=== PATIENT | female | born 1940 | race American Indian/Alaskan Native ===

== ENCOUNTER 2021-05-20 03:41 | Inpatient (IN) | payer MEDICARE ==
[2021-05-20] MEDS ORDERED: SODIUM CHLORIDE 0.9% 1000 ML 1,000 ML IV ONE ×2 (03:54→04:58)
--- NOTE | 2021-05-20 03:58 | Emergency Department Report ---
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 Patient brought to the emergency room for evaluation of generalized weakness and low blood pressure that started this morning. Patient is alert but confused. She denied any chest pain or shortness of breath. She also denied any abdominal pain, nausea or vomiting. She stated that she was going to the bathroom and she just felt weak all over. No fever or chills. - Related Data Home Medications Medication Instructions Recorded Confirmed Last Taken Empagliflozin [Jardiance] 10 mg PO QDAY 05/20/21 05/20/21 1 Day Ago ~05/19/21 Furosemide [Lasix] 20 mg PO QDAY 05/20/21 05/20/21 1 Day Ago ~05/19/21 Lipase/Protease/Amylase [Yoav Rockwell 1 cap PO BID PRN 05/20/21 05/20/21 1 Day Ago 24,000 Unit Capsule] ~05/19/21 Lipase/Protease/Amylase [Yoav Rockwell 2 cap PO TIDWM 05/20/21 05/20/21 1 Day Ago 24,000 Unit Capsule] ~05/19/21 Peg 400/Hypromellose/Glycerin [Dry 1 drop OU BID 05/20/21 05/20/21 1 Day Ago Eye Relief Eye Drops] ~05/19/21 Allergies Allergy/AdvReac Type Severity Reaction Status Date / Time No Known Allergies Allergy Verified 05/20/21 04:45 ED Review of Systems ROS: Stated complaint: WEAKNESS/LOW BP Other details as noted in HPI Comment: All other systems reviewed and negative Constitutional: denies: chills, fever Respiratory: denies: cough, shortness of breath, SOB with exertion, SOB at rest Cardiovascular: denies: chest pain, palpitations Gastrointestinal: denies: abdominal pain, nausea, vomiting Musculoskeletal: denies: back pain Neurological: weakness. denies: headache, numbness, paresthesias, confusion ED Past Medical Hx - Medications Home Medications: Home Medications Medication Instructions Recorded Confirmed Last Taken Type Empagliflozin [Jardiance] 10 mg PO QDAY 05/20/21 05/20/21 1 Day Ago History ~05/19/21 Furosemide [Lasix] 20 mg PO QDAY 05/20/21 05/20/21 1 Day Ago History ~05/19/21 Lipase/Protease/Amylase [Yoav Rockwell 1 cap PO BID PRN 05/20/21 05/20/21 1 Day Ago History 24,000 Unit Capsule] ~05/19/21 Lipase/Protease/Amylase [Yoav Rockwell 2 cap PO TIDWM 05/20/21 05/20/21 1 Day Ago History 24,000 Unit Capsule] ~05/19/21 Peg 400/Hypromellose/Glycerin [Dry 1 drop OU BID 05/20/21 05/20/21 1 Day Ago History Eye Relief Eye Drops] ~05/19/21 ED Physical Exam - General General appearance: alert, in no apparent distress - Head Head exam: Present: atraumatic, normocephalic, normal inspection - ENT ENT exam: Present: normal exam, normal orophraynx, mucous membranes moist - Neck Neck exam: Present: normal inspection. Absent: tenderness, meningismus - Respiratory Respiratory exam: Present: normal lung sounds bilaterally - Cardiovascular Cardiovascular Exam: Present: regular rate, normal rhythm, normal heart sounds - GI/Abdominal GI/Abdominal exam: Present: soft, normal bowel sounds. Absent: distended, tenderness, guarding, rebound, rigid, mass, bruit, pulsatile mass, hernia - Extremities Exam Extremities exam: Present: normal inspection, full ROM, normal capillary refill. Absent: tenderness - Back Exam Back exam: Present: normal inspection, full ROM. Absent: CVA tenderness (R), CVA tenderness (L) - Neurological Exam Neurological exam: Present: alert, altered - Psychiatric Psychiatric exam: Present: anxious - Skin Skin exam: Present: warm, intact, normal color ED Course Vital Signs 05/20/21 05/20/21 05/20/21 04:41 05:00 05:04 Temperature 97.4 F L Pulse Rate 106 H Respiratory 16 Rate Blood Pressure 121/81 Blood Pressure [Left] O2 Sat by Pulse 98 98 Oximetry 05/20/21 05/20/21 05/20/21 06:53 08:04 08:16 Temperature 97.1 F L Pulse Rate 102 H 106 H 102 H Respiratory 16 12 Rate Blood Pressure Blood Pressure 128/85 107/62 [Left] O2 Sat by Pulse 100 98 Oximetry ED Medical Decision Making - Lab Data Result diagrams: 05/20/21 06:08 05/20/21 09:30 - EKG Data -: EKG Interpreted by Me EKG shows normal: sinus rhythm Rate: tachycardia - Radiology Data Radiology results: report reviewed - Medical Decision Making Patient is 80 years old female with 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 Patient brought to the emergency room for evaluation of generalized weakness and low blood pressure that started this morning. Patient is alert but confused. She denied any chest pain or shortness of breath. She also denied any abdominal pain, nausea or vomiting. She stated that she was going to the bathroom and she just felt weak all over. No fever or chills. Sepsis protocol initiated. Patient started on normal saline 30 mils per KG. Labs reviewed and showed a creatinine of 1.9 and a BUN of 48. Chest x-ray showed left lower lobe infiltrate. Patient received Zosyn. Troponin elevated also. I discussed the patient with Dr. Gusman, he agreed to admit the patient to medical service for further management. Critical Care Time: Yes Critical care time in (mins) excluding proc time.: 35 Critical care attestation.: If time is entered above; I have spent that time in minutes in the direct care of this critically ill patient, excluding procedure time. ED Disposition Clinical Impression: Acute metabolic encephalopathy, Left lower lobe pneumonia, Sepsis, Lactic acidosis Disposition: ADMITTED INPATIENT Is pt being admited?: Yes Condition: Stable
[2021-05-20 04:24] LABS: Basophils % (Auto) 0.1 % (0.0-1.8); Eosinophils % (Auto) 0.1 % (0.0-4.3); Hematocrit 42.6 % (30.3-42.9); Hemoglobin 13.6 gm/dl (10.1-14.3); Lymphocytes # (Auto) 0.5 K/mm3 (1.2-5.4); Mean Corpuscular HGB Conc 32 % (30-34); Mean Corpuscular Volume 100 fl (79-97); Monocytes # (Auto) 0.5 K/mm3 (0.0-0.8); Monocytes % (Auto) 7.2 % (0.0-7.3); Platelet Count 100 K/mm3 (140-440); Red Blood Count 4.28 M/mm3 (3.65-5.03); Red Cell Distribution Width 17.2 % (13.2-15.2)
[2021-05-20 04:35] LABS: INR 1.28 (0.87-1.13)
[2021-05-20 04:36] LABS: Partial Thromboplastin Time 32.7 Sec. (24.2-36.6)
[2021-05-20 04:47] LABS: Albumin 2.9 g/dL (3.9-5); Bilirubin,Direct 0.6 mg/dL (0-0.2); Calcium 11.3 mg/dL (8.4-10.2)
[2021-05-20] MEDS ORDERED: ASPIRIN 81 MG TAB CHEW PO ONE (04:57)
[2021-05-20] MEDS ORDERED: PIPERACILLIN/TAZOBACTAM 3.375 3.375 GM/50 ML BAG IV ONE (04:58)
--- NOTE | 2021-05-20 05:00 | Cat Scan Report ---
CT HEAD WITHOUT CONTRAST INDICATION: Altered Mental Status. TECHNIQUE: All CT scans at this location are performed using CT dose reduction for ALARA by means of automated e xposure control. COMPARISON: None available. FINDINGS: HEMORRHAGE: None. EXTRA-AXIAL SPACES: Normal in size and morphology for the patient's age. VENTRICULAR SYSTEM: Normal in size and morphology for the patient's age. BRAIN PARENCHYMA: No acute findings. Microangiopathic changes are noted in the deep periventricular w kobe matter. MIDLINE SHIFT OR HERNIATION: None. ORBITS: Normal as visualized. SOFT TISSUES OF HEAD: Normal. CALVARIUM: Normal. VISUALIZED PARANASAL SINUSES AND MASTOID AIR CELLS: Clear. ADDITIONAL FINDINGS: None. IMPRESSION: 1. No acute intracranial abnormality. Signer Name: Alfred Ceron MD Signed: 05/20/2021 4:56 AM Workstation Name: [id number]
[2021-05-20 05:17] LABS: Chol/HDL Ratio 8.52 %
--- NOTE | 2021-05-20 05:34 | XRay Report ---
CHEST 1 VIEW INDICATION: Altered Mental Status. COMPARISON: None. FINDINGS: Support devices: Left subclavian port tip projects over the SVC/right atrial junction. Heart: Normal. Lungs/Pleura: There are patchy bilateral airspace opacities. No pleural abnormality. IMPRESSION: 1. Patchy bilateral pulmonary opacities are nonspecific but concerning for bilateral pneumonia. Signer Name: Alfred Ceron MD Signed: 05/20/2021 5:30 AM Workstation Name: [id number]
[2021-05-20] MEDS ORDERED: ALBUTEROL 2.5 MG/3 ML NEBU IH PRN (05:38)
[2021-05-20] MEDS ORDERED: HYDROmorphone 1 MG/1 ML INJ IV PRN (05:38)
[2021-05-20] MEDS ORDERED: ONDANSETRON 4 MG/2 ML INJ IV PRN (05:38)
[2021-05-20] MEDS ORDERED: MORPHINE 2 MG/1 ML INJ IV PRN (05:38)
[2021-05-20] MEDS ORDERED: ACETAMINOPHEN 325 MG TAB PO PRN ×2 (05:38→05:49)
--- NOTE | 2021-05-20 05:46 | History and Physical Report ---
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 Patient is alert but confused. She denied any chest pain or shortness of breath. She also denied a ny abdominal pain, nausea or vomiting. She stated that she was going to the bathroom and she just felt weak all over. No fever or chills. In the emergency room patient is found to have lactic acid of 5.90 , creatinine of 1.9 and a BUN of 48. Chest x-ray showed left lower lobe infiltrate. Tro ponin elevated also 0.122. So going to admit the patient we will put the patient on pneumonia pathway IV antibiotic Past History Past Medical History: other (Gallbladder cancer) Past Surgical History: Other (Gallbladder cancer status post surgery) Social history: other (Unknown) Family history: no significant family history Medications and Allergies Allergies Allergy/AdvReac Type Severity Reaction Status Date / Time No Known Allergies Allergy Verified 05/20/21 04:45 Active Meds: Active Medications Sodium Chloride (Nacl 0.9% 1000 Ml) 1,000 mls @ 999 mls/hr IV BOLUS ONE Stop: 05/20/21 05:58 Review of Systems Constitutional: weakness, malaise, lethargy, other (Low blood pressure) Exam - Constitutional Vitals: Temp Pulse Resp BP Pulse Ox 97.4 F L 106 H 16 121/81 98 05/20/21 04:41 05/20/21 04:41 05/20/21 04:41 05/20/21 04:41 05/20/21 05:04 General appearance: Present: no acute distress, well-nourished - EENT Eyes: Present: PERRL ENT: hearing intact, clear oral mucosa - Neck Neck: Present: supple, normal ROM - Respiratory Respiratory effort: normal Respiratory: bilateral: diminished - Cardiovascular Heart Sounds: Present: S1 & S2. Absent: rub, click - Extremities Extremities: pulses symmetrical, No edema Peripheral Pulses: within normal limits - Abdominal General gastrointestinal: Present: soft, non-tender, non-distended, normal bowel sounds Female genitourinary: Present: normal - Integumentary Integumentary: Present: clear, warm, dry - Musculoskeletal Musculoskeletal: gait normal, strength equal bilaterally - Psychiatric Psychiatric: appropriate mood/affect, intact judgment & insight - Neurologic Neurologic: CNII-XII intact, moves all extremities HEART Score - HEART Score Troponin: Troponin T 0.122 ng/mL (0.00-0.029) H* 05/20/21 04:13 Results - Labs CBC & Chem 7: 05/20/21 04:13 05/20/21 04:13 Labs: Laboratory Last Values WBC 6.5 K/mm3 (4.5-11.0) 05/20/21 04:13 RBC 4.28 M/mm3 (3.65-5.03) 05/20/21 04:13 Hgb 13.6 gm/dl (10.1-14.3) 05/20/21 04:13 Hct 42.6 % (30.3-42.9) 05/20/21 04:13 MCV 100 fl (79-97) H 05/20/21 04:13 MCH 32 pg (28-32) 05/20/21 04:13 MCHC 32 % (30-34) 05/20/21 04:13 RDW 17.2 % (13.2-15.2) H 05/20/21 04:13 Plt Count 100 K/mm3 (140-440) L 05/20/21 04:13 Lymph % (Auto) 7.0 % (13.4-35.0) L 05/20/21 04:13 [place] % (Auto) 7.2 % (0.0-7.3) 05/20/21 04:13 Eos % (Auto) 0.1 % (0.0-4.3) 05/20/21 04:13 Baso % (Auto) 0.1 % (0.0-1.8) 05/20/21 04:13 Lymph # (Auto) 0.5 K/mm3 (1.2-5.4) L 05/20/21 04:13 [place] # (Auto) 0.5 K/mm3 (0.0-0.8) 05/20/21 04:13 Eos # (Auto) 0.0 K/mm3 (0.0-0.4) 05/20/21 04:13 Baso # (Auto) 0.0 K/mm3 (0.0-0.1) 05/20/21 04:13 Seg Neutrophils % 85.6 % (40.0-70.0) H 05/20/21 04:13 Seg Neutrophils # 5.6 K/mm3 (1.8-7.7) 05/20/21 04:13 PT 17.5 Sec. (12.2-14.9) H 05/20/21 04:13 INR 1.28 (0.87-1.13) H 05/20/21 04:13 APTT 32.7 Sec. (24.2-36.6) 05/20/21 04:13 Sodium 140 mmol/L (137-145) 05/20/21 04:13 Potassium 4.3 mmol/L (3.6-5.0) 05/20/21 04:13 Chloride 101.8 mmol/L (98-107) 05/20/21 04:13 Carbon Dioxide 16 mmol/L (22-30) L 05/20/21 04:13 Anion Gap 27 mmol/L 05/20/21 04:13 BUN 48 mg/dL (7-17) H 05/20/21 04:13 Creatinine 1.9 mg/dL (0.6-1.2) H 05/20/21 04:13 Estimated GFR 31 ml/min 05/20/21 04:13 BUN/Creatinine Ratio 25 % 05/20/21 04:13 Glucose 143 mg/dL (65-100) H 05/20/21 04:13 Lactic Acid 5.90 mmol/L (0.7-2.0) H* 05/20/21 04:13 Calcium 11.3 mg/dL (8.4-10.2) H 05/20/21 04:13 Total Bilirubin 1.40 mg/dL (0.1-1.2) H 05/20/21 04:13 Direct Bilirubin 0.6 mg/dL (0-0.2) H 05/20/21 04:13 Indirect Bilirubin 0.8 mg/dL 05/20/21 04:13 AST 49 units/L (5-40) H 05/20/21 04:13 ALT 24 units/L (7-56) 05/20/21 04:13 Alkaline Phosphatase 114 units/L (35-129) 05/20/21 04:13 Ammonia 92.0 umol/L (25-60) H 05/20/21 04:13 Total Creatine Kinase 98 units/L (30-135) 05/20/21 04:13 Troponin T 0.122 ng/mL (0.00-0.029) H* 05/20/21 04:13 Total Protein 6.6 g/dL (6.3-8.2) 05/20/21 04:13 Albumin 2.9 g/dL (3.9-5) L 05/20/21 04:13 Albumin/Globulin Ratio 0.8 % 05/20/21 04:13 Triglycerides 138 mg/dL (2-149) 05/20/21 04:13 Cholesterol 145 mg/dL (50-199) 05/20/21 04:13 LDL Cholesterol Direct 104 mg/dL (50-130) 05/20/21 04:13 HDL Cholesterol 17 mg/dL (40-59) L 05/20/21 04:13 Cholesterol/HDL Ratio 8.52 % 05/20/21 04:13 - Imaging and Cardiology Chest x-ray: report reviewed CT Scan - head: report reviewed Assessment and Plan VTE prophylaxis?: Chemical Plan of care discussed with patient/family: Yes - Patient Problems (1) Acute metabolic encephalopathy Current Visit: Yes Status: Acute Plan to address problem: Admit the patient to the medical telemetry. Metabolic encephalopathy secondary to sepsis pneumonia. Oxygen per nasal cannula 3 L/min. DuoNeb by nebulizer every 4 hours. IV fluid. Rocephin 2 g IV daily and Zithromax 500 mg IV daily. We do the blood culture urine culture. Recheck CBC lactic acid in the morning (2) Left lower lobe pneumonia Current Visit: Yes Status: Acute Plan to address problem: Oxygen per nasal cannula 3 L/min. DuoNeb by nebulizer every 4 hours. IV flui d. Rocephin 2 g IV daily and Zithromax 500 mg IV daily. We do the blood culture urine culture. Recheck CBC lactic acid in the morning (3) Sepsis Current Visit: Yes Status: Acute Plan to address problem: Normal saline at the rate of 125 cc/h. Rocephin 2 g IV daily and Zithromax 500 mg IV daily. We do the blood culture urine culture. Recheck CBC lactic acid in the morning (4) Elevated troponin Current Visit: Yes Status: Acute Plan to address problem: Aspirin 325 mg p.o. daily. Lipitor 40 mg p.o. daily. Serial cardiac enzyme. Echocardiogram. Consult cardiology . (5) Gallbladder cancer Current Visit: Yes Status: Acute Plan to address problem: Patient has gallbladder surgery status post surgery. Patient has recurrence of gallbladder cancer outpatient follow-up with oncology (6) Lactic acidosis Current Visit: Yes Status: Acute Plan to address problem: Oxygen per nasal cannula 3 L/min. DuoNeb by nebulizer every 4 hours. IV fluid. Rocephin 2 g IV daily and Zithromax 500 mg IV daily. We do the blood culture urine culture. Recheck CBC lactic acid in the morning (7) DVT prophylaxis Current Visit: Yes Status: Acute Plan to address problem: Heparin 5000 units subcu every 8 hours for DVT prophylaxis. Pepcid 20 mg p.o. twice daily for GI prophylaxis. Patient is a full code
[2021-05-20] MEDS ORDERED: MORPHINE 4 MG/1 ML INJ IV PRN (05:49)
[2021-05-20] MEDS ORDERED: traMADol 50 MG TAB PO PRN (05:49)
[2021-05-20] MEDS ORDERED: NITROGLYCERIN 0.4 MG TAB SUBL SL PRN (05:49)
[2021-05-20 06:26] LABS: Basophils % (Auto) 0.1 % (0.0-1.8); Eosinophils % (Auto) 0.1 % (0.0-4.3); Hematocrit 37.9 % (30.3-42.9); Hemoglobin 12.9 gm/dl (10.1-14.3); Lymphocytes # (Auto) 0.3 K/mm3 (1.2-5.4); Lymphocytes % (Auto) 4.4 % (13.4-35.0); Mean Corpuscular HGB Conc 34 % (30-34); Mean Corpuscular Volume 98 fl (79-97); Monocytes # (Auto) 0.6 K/mm3 (0.0-0.8); Monocytes % (Auto) 8.3 % (0.0-7.3); Red Blood Count 3.89 M/mm3 (3.65-5.03); Red Cell Distribution Width 16.8 % (13.2-15.2)
[2021-05-20 06:27] LABS: Bilirubin,Urine NEG (Negative); Blood,Urine NEG (Negative); Color,Urine Amber (Yellow); RBC,Urine < 1.0 /HPF (0.0-6.0)
[2021-05-20 06:30] LABS: Platelet Count 97 K/mm3 (140-440)
[2021-05-20 06:33] LABS: BUN/Creatinine Ratio 25; Blood Urea Nitrogen 45 mg/dL (7-17); Calcium 10.7 mg/dL (8.4-10.2); Hemolysis Index 165
[2021-05-20] MEDS: cefTRIAXone/NS 2 GM/100 ML 2 GM/100 ML BAG IV SCH (07:15)
[2021-05-20] MEDS: AZITHROMYCIN/NS 500 MG/250 ML 500 MG/250 ML BAG IV SCH (08:17)
[2021-05-20] MEDS: IPRATROPIUM/ALBUTEROL SULFATE 3 ML AMPUL.NEB IH SCH ×4 (09:00→22:33)
[2021-05-20] MEDS ORDERED: FAMOTIDINE 20 MG/2 ML INJ IV SCH (10:00)
[2021-05-20] MEDS: FAMOTIDINE 20 MG/2 ML INJ IV SCH (10:35)
[2021-05-20] MEDS: HEPARIN 5,000 UNIT/1 ML VIAL SUB-Q SCH ×2 (10:35→21:05)
[2021-05-20 11:12] LABS: Calcium 11.6 mg/dL (8.4-10.2)
--- NOTE | 2021-05-20 11:47 | Consultation ---
History of Present Illness Consult date: 05/20/21 Consult reason: elevated troponin History of present illness: The patient is a 80-year-old woman who was diagnosed with gallbladder and pancreatic cancer over the past year, managed at [facility] with surgery followed by chemotherapy. She states that she is still undergoing treatment at the [facility]. Due to her pancreatic cancer she has had very poor oral intake over the past several weeks and months, culminating in severe weakness over the last several days. She presented to the emergency room yesterday with profound weakness. Laboratory values in the emergency room showed a creatinine of 1.8, dehydration and metabolic acidosis with a sodium of 145 and a CO2 of 19. In this milieu, troponin measurement was also reported at 0.12. Cardiology consultation was requested for the elevated troponin. The patient has no chest pain, no shortness of breath, no cardiac complaints. ECG is in normal sinus rhythm, left axis deviation, poor R wave progression across the precordium but no acute ST or T wave abnormalities. Chest x-ray reveals normal-sized cardiac silhouette, some streaking in the left lower lobe but otherwise clear lung short. She reports no significant prior cardiac history, and tells me that last year during her evaluation for her pancreatic cancer at [facility] she underwent extensive cardiac tests including echocardiogram, stress test and possibly a cardiac catheterization. Past History Past Medical History: other (Gallbladder and pancreatic cancer) Past Surgical History: Other (Gallbladder cancer status post surgery) Social history: other (Unknown) Family history: no significant family history Medications and Allergies Allergies Allergy/AdvReac Type Severity Reaction Status Date / Time No Known Allergies Allergy Verified 05/20/21 04:45 Home Medications Medication Instructions Recorded Confirmed Last Taken Type Empagliflozin [Jardiance] 10 mg PO QDAY 05/20/21 05/20/21 1 Day Ago History ~05/19/21 Furosemide [Lasix] 20 mg PO QDAY 05/20/21 05/20/21 1 Day Ago History ~05/19/21 Lipase/Protease/Amylase [Yoav Rockwell 1 cap PO BID PRN 05/20/21 05/20/21 1 Day Ago History 24,000 Unit Capsule] ~05/19/21 Lipase/Protease/Amylase [Yoav Rockwell 2 cap PO TIDWM 05/20/21 05/20/21 1 Day Ago History 24,000 Unit Capsule] ~05/19/21 Peg 400/Hypromellose/Glycerin [Dry 1 drop OU BID 05/20/21 05/20/21 1 Day Ago History Eye Relief Eye Drops] ~05/19/21 Active Meds: Active Medications Acetaminophen (Acetaminophen 325 Mg Tab) 650 mg PO Q4H PRN PRN Reason: Pain MILD(1-3)/Fever >100.5/HERNANDEZ Albuterol (Albuterol 2.5 Mg/3 Ml Nebu) 2.5 mg IH Q3HRT PRN PRN Reason: Shortness Of Breath Albuterol/Ipratropium (Ipratropium/Albuterol Sulfate 3 Ml Ampul.Neb) 1 ampul IH Q6HRT [facility] Last Admin: 05/20/21 09:17 Dose: 1 ampul Aspirin (Aspirin Ec 325 Mg Tab) 325 mg PO QDAY [facility] Atorvastatin Calcium (Atorvastatin 40 Mg Tab) 40 mg PO QHS [facility] Famotidine (Famotidine 20 Mg/2 Ml Inj) 20 mg IV DAILY [facility] Last Admin: 05/20/21 10:35 Dose: 20 mg Heparin Sodium (Porcine) (Heparin 5,000 Unit/1 Ml Vial) 5,000 unit SUB-Q Q12HR [facility] Last Admin: 05/20/21 10:35 Dose: 5,000 unit Hydromorphone HCl (Hydromorphone 1 Mg/1 Ml Inj) 0.5 mg IV Q3H PRN PRN Reason: Pain , Severe (7-10) Sodium Chloride (Nacl 0.9% 1000 Ml) 1,000 mls @ 125 mls/hr IV DIRECT AJ Ceftriaxone Sodium (Rocephin/Ns 2 Gm/100 Ml) 2 gm in 100 mls @ 200 mls/hr IV Q24H [facility]; Protocol Last Admin: 05/20/21 07:15 Dose: 200 mls/hr Azithromycin (Zithromax/Ns) 500 mg in 250 mls @ 250 mls/hr IV Q24H [facility]; Protocol Last Admin: 05/20/21 08:17 Dose: 250 mls/hr Morphine Sulfate (Morphine 2 Mg/1 Ml Inj) 2 mg IV Q4H PRN PRN Reason: Pain, Moderate (4-6) Morphine Sulfate (Morphine 4 Mg/1 Ml Inj) 2 mg IV Q5MIN PRN PRN Reason: Chest Pain unrelieved by NTG Nitroglycerin (Nitroglycerin 0.4 Mg Tab Subl) 0.4 mg SL Q5M PRN PRN Reason: Chest Pain Ondansetron HCl (Ondansetron 4 Mg/2 Ml Inj) 4 mg IV Q8H PRN PRN Reason: Nausea And Vomiting Sodium Chloride (Sodium Chloride 0.9% 10 Ml Flush Syringe) 10 ml IV BID AJ Last Admin: 05/20/21 10:36 Dose: 10 ml Sodium Chloride (Sodium Chloride 0.9% 10 Ml Flush Syringe) 10 ml IV PRN PRN PRN Reason: LINE FLUSH Tramadol HCl (Tramadol 50 Mg Tab) 50 mg PO Q6H PRN PRN Reason: Pain, Moderate (4-6) Review of Systems Cardiovascular: no chest pain, no orthopnea, no palpitations, no rapid/irregular heart beat, no edema, no syncope, no lightheadedness, no shortness of breath Physical Examination Vital Signs Temp Pulse Resp BP 97.4 F L 106 H 16 121/81 05/20/21 04:41 05/20/21 04:41 05/20/21 04:41 05/20/21 04:41 General appearance: no acute distress, cachectic, other (Chronically ill- appearing) HEENT: Positive: PERRL Neck: Positive: neck supple Cardiac: Positive: Reg Rate and Rhythm Lungs: Positive: clear to auscultation Neuro: Positive: Grossly Intact Abdomen: Positive: Soft Female genitourinary: deferred Skin: Positive: Clear Extremities: Absent: edema Results 05/20/21 06:08 05/20/21 09:30 Cardiac Enzymes 05/20/21 Range/Units 04:13 AST 49 H (5-40) units/L Coagulation 05/20/21 Range/Units 04:13 PT 17.5 H (12.2-14.9) Sec. INR 1.28 H (0.87-1.13) APTT 32.7 (24.2-36.6) Sec. Lipids 05/20/21 Range/Units 04:13 Triglycerides 138 (2-149) mg/dL Cholesterol 145 (50-199) mg/dL HDL Cholesterol 17 L (40-59) mg/dL Cholesterol/HDL Ratio 8.52 % CBC 05/20/21 05/20/21 Range/Units 04:13 06:08 WBC 6.5 6.6 (4.5-11.0) K/mm3 RBC 4.28 3.89 (3.65-5.03) M/mm3 Hgb 13.6 12.9 (10.1-14.3) gm/dl Hct 42.6 37.9 (30.3-42.9) % Plt Count 100 L 97 L (140-440) K/mm3 Lymph # (Auto) 0.5 L 0.3 L (1.2-5.4) K/mm3 [place] # (Auto) 0.5 0.6 (0.0-0.8) K/mm3 Eos # (Auto) 0.0 0.0 (0.0-0.4) K/mm3 Baso # (Auto) 0.0 0.0 (0.0-0.1) K/mm3 Comprehensive Metabolic Panel 05/20/21 05/20/21 05/20/21 Range/Units 04:13 06:08 09:30 Sodium 140 TNR 145 (137-145) mmol/L Potassium 4.3 TNR 4.5 (3.6-5.0) mmol/L Chloride 101.8 TNR 107.9 H (98-107) mmol/L Carbon Dioxide 16 L 17 L 19 L (22-30) mmol/L BUN 48 H 45 H 45 H (7-17) mg/dL Creatinine 1.9 H 1.8 H 1.9 H (0.6-1.2) mg/dL Glucose 143 H 140 H 137 H (65-100) mg/dL Calcium 11.3 H 10.7 H 11.6 H (8.4-10.2) mg/dL Direct Bilirubin 0.6 H (0-0.2) mg/dL Indirect Bilirubin 0.8 mg/dL AST 49 H (5-40) units/L ALT 24 (7-56) units/L Alkaline Phosphatase 114 (35-129) units/L Total Protein 6.6 (6.3-8.2) g/dL Albumin 2.9 L (3.9-5) g/dL EKG interpretations - Telemetry EKG Rhythm: Sinus Rhythm Assessment and Plan - Patient Problems (1) Elevated troponin Current Visit: Yes Status: Acute Plan to address problem: Elevated troponin troponin levels likely in nonspecific incidental finding in this clinical presentation with severe dehydration following extensive surgery and chemotherapy for gallbladder and pancreatic cancer. We will request for records from [facility] including the echocardiogram, stress test and possible cardiac catheterization reports, otherwise no clinical indication for further cardiac work-up at this time.
--- NOTE | 2021-05-20 12:35 | Electrocardiograph Report ---
[facility] Test Date: 2021-05-20 Test Time: 04:51:16 Pat Name: SLADE CARLISLE Department: Room: A479 1 Gender: F Freight Inspector: ALCIRA : 1940 Requested By: NIKITA NGUYEN Order Number: [id number] Reading MD: Kezia Ann Measurements Intervals [place] Rate: 104 P: 118 [place]: 55 QRS: -67 QRSD: 80 T: 131 QT: 314 QTc: 414 Interpretive Statements Sinus tachycardia Left axis deviation Old anterior infarct Low voltage QRS No previous ECG available for comparison Electronically Signed On 05-20-2021 12:35:17 EST by Kezia Ann
--- NOTE | 2021-05-20 20:06 | Progress Note ---
Assessment and Plan Assessment and plan: --non-ST elevation [place] Current Visit: Yes Status: Acute Aspirin 325 mg p.o. daily. Lipitor 40 mg p.o. daily. Serial cardiac enzyme. Cardiology consult, echo for LV function ejection fraction Low-dose beta-blockers, RASHEEDA inhibitors Supportive care --Acute toxic metabolic encephalopathy Current Visit: Yes Status: Acute Metabolic encephalopathy secondary to sepsis pneumonia. Oxygen per nasal cannula 3 L/min. DuoNeb by nebulizer every 4 hours. IV fluid. Rocephin 2 g IV daily and Zithromax 500 mg IV daily. Follow blood culture urine culture. -- Left lower lobe pneumonia/community-acquired Current Visit: Yes Status: Acute Empiric antibiotics, follow cultures Oxygen titrate O2 sats to more than 90% Supportive care --Sepsis secondary to community-acquired pneumonia Current Visit: Yes Status: Acute Tachycardia, lactic acidosis, hypotension, pneumonia on x-ray Treat the underlying cause, continue antibiotics Check procalcitonin, follow cultures --h/o Gallbladder cancer Current Visit: Yes Status: Acute Patient has gallbladder surgery status post surgery. Patient has recurrence of gallbladder cancer outpatient follow-up with oncology --Lactic acidosis Current Visit: Yes Status: Acute Due to sepsis due to pneumonia, IV fluids Rocephin 2 g IV daily and Zithromax 500 mg IV daily. Follow blood cultures -DVT prophylaxis Current Visit: Yes Status: Acute Heparin 5000 units subcu every 8 hours for DVT prophylaxis. Pepcid 20 mg p.o. twice daily for GI prophylaxis. Patient is a full code We will monitor the patient and adjust management as needed Plan of care reviewed with the patient and her nurse Follow cardiology evaluation and recommendations Prolonged care total time 35 minutes History Interval history: I have seen and examined the patient at the bedside this morning Patient's chart and medications reviewed Patient feels slightly better No new complaints vital signs reviewed Hospitalist Physical - Constitutional Vitals: Temp Pulse Resp BP Pulse Ox 94.6 F L 110 H 17 118/68 67 L 05/20/21 15:46 05/20/21 15:46 05/20/21 15:46 05/20/21 15:46 05/20/21 15:46 General appearance: Present: no acute distress, cachectic, other (Chronically ill-appearing) - EENT Eyes: Present: PERRL, EOM intact - Neck Neck: Present: supple, normal ROM - Respiratory Respiratory effort: normal Respiratory: bilateral: diminished, negative: rales, rhonchi, wheezing - Cardiovascular Rhythm: regular Heart Sounds: Present: S1 & S2 - Extremities Extremities: no ischemia, No edema - Abdominal General gastrointestinal: soft, non-tender, non-distended, normal bowel sounds - Integumentary Integumentary: Present: clear, warm - Psychiatric Psychiatric: appropriate mood/affect, cooperative - Neurologic Neurologic: CNII-XII intact, moves all extremities HEART Score - HEART Score Troponin: Troponin T 0.133 ng/mL (0.00-0.029) H* 05/20/21 11:50 Results - Labs CBC & Chem 7: 05/21/21 05:33 05/21/21 05:33 Labs: Laboratory Last Values WBC 6.6 K/mm3 (4.5-11.0) 05/20/21 06:08 RBC 3.89 M/mm3 (3.65-5.03) 05/20/21 06:08 Hgb 12.9 gm/dl (10.1-14.3) 05/20/21 06:08 Hct 37.9 % (30.3-42.9) 05/20/21 06:08 MCV 98 fl (79-97) H 05/20/21 06:08 MCH 33 pg (28-32) H 05/20/21 06:08 MCHC 34 % (30-34) 05/20/21 06:08 RDW 16.8 % (13.2-15.2) H 05/20/21 06:08 Plt Count 97 K/mm3 (140-440) L 05/20/21 06:08 Lymph % (Auto) 4.4 % (13.4-35.0) L 05/20/21 06:08 [place] % (Auto) 8.3 % (0.0-7.3) H 05/20/21 06:08 Eos % (Auto) 0.1 % (0.0-4.3) 05/20/21 06:08 Baso % (Auto) 0.1 % (0.0-1.8) 05/20/21 06:08 Lymph # (Auto) 0.3 K/mm3 (1.2-5.4) L 05/20/21 06:08 [place] # (Auto) 0.6 K/mm3 (0.0-0.8) 05/20/21 06:08 Eos # (Auto) 0.0 K/mm3 (0.0-0.4) 05/20/21 06:08 Baso # (Auto) 0.0 K/mm3 (0.0-0.1) 05/20/21 06:08 Seg Neutrophils % 87.1 % (40.0-70.0) H 05/20/21 06:08 Seg Neutrophils # 5.8 K/mm3 (1.8-7.7) 05/20/21 06:08 PT 17.5 Sec. (12.2-14.9) H 05/20/21 04:13 INR 1.28 (0.87-1.13) H 05/20/21 04:13 APTT 32.7 Sec. (24.2-36.6) 05/20/21 04:13 Sodium 145 mmol/L (137-145) 05/20/21 09:30 Potassium 4.5 mmol/L (3.6-5.0) 05/20/21 09:30 Chloride 107.9 mmol/L (98-107) H 05/20/21 09:30 Carbon Dioxide 19 mmol/L (22-30) L 05/20/21 09:30 Anion Gap 23 mmol/L 05/20/21 09:30 BUN 45 mg/dL (7-17) H 05/20/21 09:30 Creatinine 1.9 mg/dL (0.6-1.2) H 05/20/21 09:30 Estimated GFR 31 ml/min 05/20/21 09:30 BUN/Creatinine Ratio 24 % 05/20/21 09:30 Glucose 137 mg/dL (65-100) H 05/20/21 09:30 POC Glucose 111 mg/dL (70-105) H 05/20/21 11:03 Lactic Acid 4.50 mmol/L (0.7-2.0) H* 05/20/21 10:33 Calcium 11.6 mg/dL (8.4-10.2) H 05/20/21 09:30 Total Bilirubin 1.40 mg/dL (0.1-1.2) H 05/20/21 04:13 Direct Bilirubin 0.6 mg/dL (0-0.2) H 05/20/21 04:13 Indirect Bilirubin 0.8 mg/dL 05/20/21 04:13 AST 49 units/L (5-40) H 05/20/21 04:13 ALT 24 units/L (7-56) 05/20/21 04:13 Alkaline Phosphatase 114 units/L (35-129) 05/20/21 04:13 Ammonia 92.0 umol/L (25-60) H 05/20/21 04:13 Total Creatine Kinase 98 units/L (30-135) 05/20/21 04:13 Troponin T 0.133 ng/mL (0.00-0.029) H* 05/20/21 11:50 Total Protein 6.6 g/dL (6.3-8.2) 05/20/21 04:13 Albumin 2.9 g/dL (3.9-5) L 05/20/21 04:13 Albumin/Globulin Ratio 0.8 % 05/20/21 04:13 Triglycerides 138 mg/dL (2-149) 05/20/21 04:13 Cholesterol 145 mg/dL (50-199) 05/20/21 04:13 LDL Cholesterol Direct 104 mg/dL (50-130) 05/20/21 04:13 HDL Cholesterol 17 mg/dL (40-59) L 05/20/21 04:13 Cholesterol/HDL Ratio 8.52 % 05/20/21 04:13 Urine Color [place] (Yellow) 05/20/21 06:04 Urine Turbidity Slightly-cloudy (Clear) 05/20/21 06:04 Urine pH 5.0 (5.0-7.0) 05/20/21 06:04 Ur Specific [place] 1.027 (1.003-1.030) 05/20/21 06:04 Urine Protein 30 mg/dl mg/dL (Negative) 05/20/21 06:04 Urine Glucose (UA) 150 mg/dL (Negative) 05/20/21 06:04 Urine Ketones Tr mg/dL (Negative) 05/20/21 06:04 Urine Blood Neg (Negative) 05/20/21 06:04 Urine Nitrite Neg (Negative) 05/20/21 06:04 Urine Bilirubin Neg (Negative) 05/20/21 06:04 Urine Urobilinogen 2.0 mg/dL (<2.0) 05/20/21 06:04 Ur Leukocyte Esterase Neg (Negative) 05/20/21 06:04 Urine WBC (Auto) 0.0 /HPF (0.0-6.0) 05/20/21 06:04 Urine RBC (Auto) < 1.0 /HPF (0.0-6.0) 05/20/21 06:04 Microbiology: Microbiology 05/20/21 04:13 Peripheral/Venous Blood Culture - Preliminary Culture in Progress 05/20/21 04:13 Peripheral/Venous Blood Culture - Preliminary Culture in Progress Palomo/IV: Voiding Method Toilet Active Medications - Current Medications Current Medications: Generic Name Dose Route Start Last Admin Trade Name Freq PRN Reason Stop Dose Admin Acetaminophen 650 mg 05/20/21 05:38 Acetaminophen 325 Mg Tab PO Q4H PRN Pain MILD(1-3)/Fever >100.5/HERNANDEZ Albuterol 2.5 mg 05/20/21 05:38 Albuterol 2.5 Mg/3 Ml Nebu IH Q3HRT PRN Shortness Of Breath Albuterol/Ipratropium 1 ampul 05/20/21 08:00 05/20/21 14:24 Ipratropium/Albuterol Sulfate 3 Ml Ampul.Neb IH 1 ampul Q6HRT AJ Administration Aspirin 325 mg 05/21/21 10:00 Aspirin Ec 325 Mg Tab PO QDAY AJ Atorvastatin Calcium 40 mg 05/20/21 22:00 Atorvastatin 40 Mg Tab PO QHS AJ Famotidine 20 mg 05/20/21 10:00 05/20/21 10:35 Famotidine 20 Mg/2 Ml Inj IV 20 mg DAILY AJ Administration Heparin Sodium (Porcine) 5,000 unit 05/20/21 10:00 05/20/21 10:35 Heparin 5,000 Unit/1 Ml Vial SUB-Q 5,000 unit Q12HR AJ Administration Hydromorphone HCl 0.5 mg 05/20/21 05:38 Hydromorphone 1 Mg/1 Ml Inj IV Q3H PRN Pain , Severe (7-10) Sodium Chloride 1,000 mls @ 125 mls/hr 05/20/21 05:45 Nacl 0.9% 1000 Ml IV DIRECT AJ Ceftriaxone Sodium 2 gm in 100 mls @ 200 mls/hr 05/20/21 06:00 05/20/21 07:15 Rocephin/Ns 2 Gm/100 Ml IV 200 mls/hr Q24H AJ Administration Protocol Azithromycin 500 mg in 250 mls @ 250 mls/hr 05/20/21 06:00 05/20/21 08:17 Zithromax/Ns IV 250 mls/hr Q24H AJ Administration Protocol Morphine Sulfate 2 mg 05/20/21 05:38 Morphine 2 Mg/1 Ml Inj IV Q4H PRN Pain, Moderate (4-6) Morphine Sulfate 2 mg 05/20/21 05:49 Morphine 4 Mg/1 Ml Inj IV Q5MIN PRN Chest Pain unrelieved by NTG Nitroglycerin 0.4 mg 05/20/21 05:49 Nitroglycerin 0.4 Mg Tab Subl SL Q5M PRN Chest Pain Ondansetron HCl 4 mg 05/20/21 05:38 Ondansetron 4 Mg/2 Ml Inj IV Q8H PRN Nausea And Vomiting Sodium Chloride 10 ml 05/20/21 10:00 05/20/21 10:36 Sodium Chloride 0.9% 10 Ml Flush Syringe IV 10 ml BID AJ Administration Sodium Chloride 10 ml 05/20/21 05:38 Sodium Chloride 0.9% 10 Ml Flush Syringe IV PRN PRN LINE FLUSH Tramadol HCl 50 mg 05/20/21 05:49 Tramadol 50 Mg Tab PO Q6H PRN Pain, Moderate (4-6)
[2021-05-21] MEDS: IPRATROPIUM/ALBUTEROL SULFATE 3 ML AMPUL.NEB IH SCH ×4 (05:07→21:50)
[2021-05-21] MEDS: cefTRIAXone/NS 2 GM/100 ML 2 GM/100 ML BAG IV SCH (06:01)
[2021-05-21 06:12] LABS: Calcium 11.4 mg/dL (8.4-10.2)
[2021-05-21 06:22] LABS: Hematocrit 41.1 % (30.3-42.9); Hemoglobin 13.1 gm/dl (10.1-14.3); Mean Corpuscular HGB Conc 32 % (30-34); Mean Corpuscular Volume 99 fl (79-97); Red Blood Count 4.16 M/mm3 (3.65-5.03); Red Cell Distribution Width 16.8 % (13.2-15.2)
[2021-05-21 06:23] LABS: Platelet Count 89 K/mm3 (140-440)
[2021-05-21] MEDS: AZITHROMYCIN/NS 500 MG/250 ML 500 MG/250 ML BAG IV SCH (06:41)
[2021-05-21] MEDS: SODIUM CHLORIDE 0.9% 1000 ML 1,000 ML IV SCH ×2 (09:20→16:18)
[2021-05-21] MEDS: HEPARIN 5,000 UNIT/1 ML VIAL SUB-Q SCH ×3 (09:32→22:29)
[2021-05-21] MEDS: FAMOTIDINE 20 MG/2 ML INJ IV SCH (09:33)
[2021-05-21] MEDS: ASPIRIN EC 325 MG TAB PO SCH ×2 (09:33→09:42)
--- NOTE | 2021-05-21 11:15 | Progress Note ---
Assessment and Plan - Patient Problems (1) Elevated troponin Current Visit: Yes Status: Acute Plan to address problem: Elevated troponin troponin levels likely in nonspecific incidental finding in this clinical presentation with severe dehydration following extensive surgery and chemotherapy for gallbladder and pancreatic cancer. We have requested records from [facility] including the echocardiogram, stress test and possible cardiac catheterization reports, otherwise no clinical indication for further cardiac work-up at this time. Subjective Date of service: 05/21/21 Principal diagnosis: Weakness, elevated troponin Interval history: Patient is comfortable, no acute distress. She still has problems with appetite and oral intake. No new cardiac complaints, no cardiac events reported. Objective Vital Signs Temp Pulse Pulse Resp Resp BP BP 05/21/21 08:00 68 19 05/21/21 07:49 97.4 F L 78 16 110/70 05/21/21 03:33 98.0 F 94 H 18 113/74 05/20/21 23:11 97.6 F 16 100/65 05/20/21 22:36 110 H 20 05/20/21 22:35 05/20/21 22:00 05/20/21 20:00 98.0 F 112 H 15 119/80 05/20/21 15:46 94.6 F L 110 H 17 118/68 05/20/21 14:26 61 17 05/20/21 11:54 105/64 Pulse Ox 05/21/21 08:00 91 05/21/21 07:49 91 05/21/21 03:33 94 05/20/21 23:11 92 05/20/21 22:36 05/20/21 22:35 92 05/20/21 22:00 92 05/20/21 20:00 99 05/20/21 15:46 67 L 05/20/21 14:26 05/20/21 11:54 97 - Physical Examination General: No Apparent Distress, Cachectic HEENT: Positive: PERRL Neck: Positive: neck supple Cardiac: Positive: Reg Rate and Rhythm Lungs: Positive: Decreased Breath Sounds Neuro: Positive: Grossly Intact Abdomen: Positive: Soft Skin: Positive: Clear Extremities: Absent: edema - Labs and Meds CBC 05/21/21 Range/Units 05:33 WBC 6.5 (4.5-11.0) K/mm3 RBC 4.16 (3.65-5.03) M/mm3 Hgb 13.1 (10.1-14.3) gm/dl Hct 41.1 (30.3-42.9) % Plt Count 89 L (140-440) K/mm3 Lymph # (Auto) [employer] [place] # (Auto) [employer] Eos # (Auto) [employer] Baso # (Auto) [employer] Comprehensive Metabolic Panel 05/21/21 Range/Units 05:33 Sodium 140 (137-145) mmol/L Potassium 4.0 (3.6-5.0) mmol/L Chloride 108.2 H (98-107) mmol/L Carbon Dioxide 19 L (22-30) mmol/L BUN 46 H (7-17) mg/dL Creatinine 2.2 H (0.6-1.2) mg/dL Glucose 132 H (65-100) mg/dL Calcium 11.4 H (8.4-10.2) mg/dL
--- NOTE | 2021-05-21 18:07 | Progress Note ---
Assessment and Plan Assessment and plan: --non-ST elevation [place] Current Visit: Yes Status: Acute Aspirin 325 mg p.o. daily. Lipitor 40 mg p.o. daily. Serial cardiac enzyme. Cardiology evaluation noted and appreciated Low-dose beta-blockers, RASHEEDA inhibitors Medical records from [place] requested --Acute toxic metabolic encephalopathy Current Visit: Yes Status: Acute Metabolic encephalopathy secondary to sepsis pneumonia. Oxygen per nasal cannula 3 L/min. DuoNeb by nebulizer every 4 hours. IV fluid. Rocephin 2 g IV daily and Zithromax 500 mg IV daily. Follow blood culture urine culture. --Acute kidney injury; due to vasomotor nephropathy Current Visit: Yes Status: Acute Worsening renal function, gentle hydration Monitor renal function, avoid nephrotoxins Renal dosing of medication, check renal ultrasound Consult nephrology - Left lower lobe pneumonia/community-acquired Current Visit: Yes Status: Acute Empiric antibiotics, follow cultures Oxygen titrate O2 sats to more than 90% Supportive care --Sepsis secondary to community-acquired pneumonia Current Visit: Yes Status: Acute Tachycardia, lactic acidosis, hypotension, pneumonia on x-ray Treat the underlying cause, continue antibiotics Check procalcitonin, follow cultures --Lactic acidosis Current Visit: Yes Status: Acute Due to sepsis due to pneumonia, IV fluids Rocephin 2 g IV daily and Zithromax 500 mg IV daily. Follow blood cultures --h/o Gallbladder cancer Current Visit: Yes Status: Acute Patient has gallbladder surgery status post surgery. Patient has recurrence of gallbladder cancer outpatient follow-up with oncology -DVT prophylaxis advance care planning Current Visit: Yes Status: Acute Heparin 5000 units subcu every 8 hours for DVT prophylaxis. Pepcid 20 mg p.o. twice daily for GI prophylaxis. Patient is a full code Advance care planning: I called patient's son Mr. Chin Pineda, discussed patient's condition, I discussed patient's tests and reports I discussed patient's treatment plan, I discussed that we requested medical records from [place] and we are waiting for them I discussed the prognosis, I answered all his questions and concerns. +32 minutes We will monitor the patient and adjust management as needed Plan of care reviewed with the patient and her nurse Cardiology evaluation noted and appreciated Medical records requested from [place] 05/21; patient feels slightly better, cardiology following, requested medical records from [place] Continue current management, cultures negative to date Disposition; follow records from [place], follow cardiology recommendations Discharge when stable and cleared by cardiology Family: I called patient's son Mr. Chin Pineda at [phone] and discussed in detail patient's condition, tests and reports, treatment plan and consultants recommendations, he had numerous questions, answered all of them and encouraged him to call back if he has new questions or concerns he verbalized understanding and was appreciative of my call History Interval history: I have seen and examined patient at the bedside Patient's chart and medications reviewed Patient is alert and awake confused Vital signs Hospitalist Physical - Constitutional Vitals: Temp Pulse Resp BP Pulse Ox 97.4 F L 68 18 106/72 87 05/21/21 16:53 05/21/21 16:53 05/21/21 16:53 05/21/21 16:53 05/21/21 16:53 General appearance: Present: no acute distress, cachectic, other (Looks chronically ill, confused) - EENT Eyes: Present: PERRL, EOM intact - Neck Neck: Present: supple, normal ROM - Respiratory Respiratory effort: normal Respiratory: bilateral: diminished, rhonchi, negative: rales, wheezing - Cardiovascular Rhythm: regular Heart Sounds: Present: S1 & S2 - Extremities Extremities: no ischemia, No edema - Abdominal General gastrointestinal: soft, non-tender, non-distended, normal bowel sounds - Integumentary Integumentary: Present: clear, warm - Psychiatric Psychiatric: other (Confused, minimally communicative) - Neurologic Neurologic: moves all extremities HEART Score - HEART Score Troponin: Troponin T 0.133 ng/mL (0.00-0.029) H* 05/20/21 11:50 Results - Labs CBC & Chem 7: 05/21/21 05:33 05/21/21 05:33 Labs: Laboratory Last Values WBC 6.5 K/mm3 (4.5-11.0) 05/21/21 05:33 RBC 4.16 M/mm3 (3.65-5.03) 05/21/21 05:33 Hgb 13.1 gm/dl (10.1-14.3) 05/21/21 05:33 Hct 41.1 % (30.3-42.9) 05/21/21 05:33 MCV 99 fl (79-97) H 05/21/21 05:33 MCH 32 pg (28-32) 05/21/21 05:33 MCHC 32 % (30-34) 05/21/21 05:33 RDW 16.8 % (13.2-15.2) H 05/21/21 05:33 Plt Count 89 K/mm3 (140-440) L 05/21/21 05:33 Lymph % (Auto) [employer]iconductor Technician 05/21/21 05:33 [place] % (Auto) Semiconductor Technician 05/21/21 05:33 Eos % (Auto) Semiconductor Technician 05/21/21 05:33 Baso % (Auto) Semiconductor Technician 05/21/21 05:33 Lymph # (Auto) Semiconductor Technician 05/21/21 05:33 [place] # (Auto) Semiconductor Technician 05/21/21 05:33 Eos # (Auto) Semiconductor Technician 05/21/21 05:33 Baso # (Auto) Semiconductor Technician 05/21/21 05:33 Seg Neutrophils % Semiconductor Technician 05/21/21 05:33 Seg Neutrophils # Semiconductor Technician 05/21/21 05:33 PT 17.5 Sec. (12.2-14.9) H 05/20/21 04:13 INR 1.28 (0.87-1.13) H 05/20/21 04:13 APTT 32.7 Sec. (24.2-36.6) 05/20/21 04:13 Sodium 140 mmol/L (137-145) 05/21/21 05:33 Potassium 4.0 mmol/L (3.6-5.0) 05/21/21 05:33 Chloride 108.2 mmol/L (98-107) H 05/21/21 05:33 Carbon Dioxide 19 mmol/L (22-30) L 05/21/21 05:33 Anion Gap 17 mmol/L 05/21/21 05:33 BUN 46 mg/dL (7-17) H 05/21/21 05:33 Creatinine 2.2 mg/dL (0.6-1.2) H 05/21/21 05:33 Estimated GFR 26 ml/min 05/21/21 05:33 BUN/Creatinine Ratio 21 % 05/21/21 05:33 Glucose 132 mg/dL (65-100) H 05/21/21 05:33 POC Glucose 111 mg/dL (70-105) H 05/20/21 11:03 Lactic Acid 3.90 mmol/L (0.7-2.0) H* 05/21/21 05:33 Calcium 11.4 mg/dL (8.4-10.2) H 05/21/21 05:33 Total Bilirubin 1.40 mg/dL (0.1-1.2) H 05/20/21 04:13 Direct Bilirubin 0.6 mg/dL (0-0.2) H 05/20/21 04:13 Indirect Bilirubin 0.8 mg/dL 05/20/21 04:13 AST 49 units/L (5-40) H 05/20/21 04:13 ALT 24 units/L (7-56) 05/20/21 04:13 Alkaline Phosphatase 114 units/L (35-129) 05/20/21 04:13 Ammonia 92.0 umol/L (25-60) H 05/20/21 04:13 Total Creatine Kinase 98 units/L (30-135) 05/20/21 04:13 Troponin T 0.133 ng/mL (0.00-0.029) H* 05/20/21 11:50 Total Protein 6.6 g/dL (6.3-8.2) 05/20/21 04:13 Albumin 2.9 g/dL (3.9-5) L 05/20/21 04:13 Albumin/Globulin Ratio 0.8 % 05/20/21 04:13 Triglycerides 138 mg/dL (2-149) 05/20/21 04:13 Cholesterol 145 mg/dL (50-199) 05/20/21 04:13 LDL Cholesterol Direct 104 mg/dL (50-130) 05/20/21 04:13 HDL Cholesterol 17 mg/dL (40-59) L 05/20/21 04:13 Cholesterol/HDL Ratio 8.52 % 05/20/21 04:13 Urine Color [place] (Yellow) 05/20/21 06:04 Urine Turbidity Slightly-cloudy (Clear) 05/20/21 06:04 Urine pH 5.0 (5.0-7.0) 05/20/21 06:04 Ur Specific [place] 1.027 (1.003-1.030) 05/20/21 06:04 Urine Protein 30 mg/dl mg/dL (Negative) 05/20/21 06:04 Urine Glucose (UA) 150 mg/dL (Negative) 05/20/21 06:04 Urine Ketones Tr mg/dL (Negative) 05/20/21 06:04 Urine Blood Neg (Negative) 05/20/21 06:04 Urine Nitrite Neg (Negative) 05/20/21 06:04 Urine Bilirubin Neg (Negative) 05/20/21 06:04 Urine Urobilinogen 2.0 mg/dL (<2.0) 05/20/21 06:04 Ur Leukocyte Esterase Neg (Negative) 05/20/21 06:04 Urine WBC (Auto) 0.0 /HPF (0.0-6.0) 05/20/21 06:04 Urine RBC (Auto) < 1.0 /HPF (0.0-6.0) 05/20/21 06:04 Microbiology: Microbiology 05/20/21 04:13 Peripheral/Venous Blood Culture - Preliminary NO GROWTH AFTER 24 HOURS 05/20/21 04:13 Peripheral/Venous Blood Culture - Preliminary NO GROWTH AFTER 24 HOURS Palomo/IV: Voiding Method External Female Catheter Active Medications - Current Medications Current Medications: Generic Name Dose Route Start Last Admin Trade Name Freq PRN Reason Stop Dose Admin Acetaminophen 650 mg 05/20/21 05:38 Acetaminophen 325 Mg Tab PO Q4H PRN Pain MILD(1-3)/Fever >100.5/HERNANDEZ Albuterol 2.5 mg 05/20/21 05:38 Albuterol 2.5 Mg/3 Ml Nebu IH Q3HRT PRN Shortness Of Breath Albuterol/Ipratropium 1 ampul 05/20/21 08:00 05/21/21 14:07 Ipratropium/Albuterol Sulfate 3 Ml Ampul.Neb IH 1 ampul Q6HRT AJ Administration Aspirin 325 mg 05/21/21 10:00 05/21/21 09:42 Aspirin Ec 325 Mg Tab PO Not Given QDAY AJ Atorvastatin Calcium 40 mg 05/20/21 22:00 05/20/21 21:04 Atorvastatin 40 Mg Tab PO 40 mg QHS AJ Administration Famotidine 20 mg 05/20/21 10:00 05/21/21 09:33 Famotidine 20 Mg/2 Ml Inj IV 20 mg DAILY AJ Administration Heparin Sodium (Porcine) 5,000 unit 05/20/21 10:00 05/21/21 09:41 Heparin 5,000 Unit/1 Ml Vial SUB-Q Not Given Q12HR [facility] Hydromorphone HCl 0.5 mg 05/20/21 05:38 Hydromorphone 1 Mg/1 Ml Inj IV Q3H PRN Pain , Severe (7-10) Sodium Chloride 1,000 mls @ 125 mls/hr 05/20/21 05:45 05/21/21 16:18 Nacl 0.9% 1000 Ml IV 125 mls/hr DIRECT AJ Administration Ceftriaxone Sodium 2 gm in 100 mls @ 200 mls/hr 05/20/21 06:00 05/21/21 06:01 Rocephin/Ns 2 Gm/100 Ml IV 05/24/21 06:29 200 mls/hr Q24H AJ Administration Protocol Azithromycin 500 mg in 250 mls @ 250 mls/hr 05/20/21 06:00 05/21/21 06:41 Zithromax/Ns IV 05/24/21 06:59 250 mls/hr Q24H JA Administration Protocol Morphine Sulfate 2 mg 05/20/21 05:38 Morphine 2 Mg/1 Ml Inj IV Q4H PRN Pain, Moderate (4-6) Morphine Sulfate 2 mg 05/20/21 05:49 Morphine 4 Mg/1 Ml Inj IV Q5MIN PRN Chest Pain unrelieved by NTG Nitroglycerin 0.4 mg 05/20/21 05:49 Nitroglycerin 0.4 Mg Tab Subl SL Q5M PRN Chest Pain Ondansetron HCl 4 mg 05/20/21 05:38 Ondansetron 4 Mg/2 Ml Inj IV Q8H PRN Nausea And Vomiting Sodium Chloride 10 ml 05/20/21 10:00 05/21/21 09:21 Sodium Chloride 0.9% 10 Ml Flush Syringe IV 10 ml BID AJ Administration Sodium Chloride 10 ml 05/20/21 05:38 Sodium Chloride 0.9% 10 Ml Flush Syringe IV PRN PRN LINE FLUSH Tramadol HCl 50 mg 05/20/21 05:49 Tramadol 50 Mg Tab PO Q6H PRN Pain, Moderate (4-6) Nutrition/Malnutrition Assess - Dietary Evaluation Nutrition/Malnutrition Findings: Nutrition Notes Start: 05/21/21 12:31 Freq: Status: Active Protocol: Document 05/21/21 12:31 MARSHA (Rec: 05/21/21 12:57 MARSHA [id number]) Nutrition Notes Need for Assessment generated from: x ray equipment tester,MST Initial or Follow up Assessment Current Diagnosis Sepsis Other Pertinent Diagnosis Acute Metabolic Encephalopathy , Lactic Acidosis, Elevated Troponin, ... Current Diet NPO (since 05/21 00:01). Labs/Tests 05/21: Cl 108.2, CO2 19, BUN 46, Crea 2.2, Glu 132, Ca 11.4 . Pertinent Medications 05/21: Nutritionally unremarkable. Height 5 ft 4 in Weight 77 kg [place] Body Weight (kg) 54.54 BMI 29.1 Intake Prior to Admission Poor Weight change and time frame Pt states havig unintentionally loss 2 to 13 lbs recently. Weight Status Overweight Subjective/Other Information RD consult for skin risk and risk of malnutrition assessments. Pt currently on NPO. Yesterday, Pt's PO was Good ( 75-100%), according to ADL notes. Pt is s/p Gallbladder and Pancreatic Cancer, and has extensive surgical and chem- radiation interventions, and recurrencies. Pt shows no signs of concern for risk of malnutrition at the time, accoreding to Physical Assessment History notes. Percent of energy/protein needs met: Pt currently on NPO. Burn Absent Trauma Absent GI Symptoms None Food Allergy No Skin Integrity/Comment Surgical wounds. Current % PO Other Minimum of two criteria No #1 Nutrition Diagnosis No nutrition diagnosis at this time Comments: Will reassess at F/U. Is patient on ventilator? No Is Patient Ambulatory and/or Out of Bed No REE-([facility]-confined to bed) [phone] Calculation Used for Recommendations [facility] Additional Notes Protein: 1-1.2 g/Kg; 77-92 g/ day. Fluids: 1 ml/Kcal, or as per MD. Nutrition Intervention Follow-Up By: 05/23/21 Additional Comments When pertinent, start monitoring food tolerance, %PO intake of meals, and BM.
--- NOTE | 2021-05-21 18:46 | Event Note ---
Date: 05/21/21 I called patient's son Mr. Chin Pineda at [phone] and discussed in detail patient's condition, tests and reports, treatment plan and consultants recommendations, he had numerous questions, answered all of them and encouraged him to call back if he has new questions or concerns he verbalized understanding and was appreciative of my call
[2021-05-21] MEDS: carvediloL 3.125 MG TAB PO SCH (22:29)
[2021-05-22] MEDS: IPRATROPIUM/ALBUTEROL SULFATE 3 ML AMPUL.NEB IH SCH ×4 (04:15→20:31)
[2021-05-22] MEDS: cefTRIAXone/NS 2 GM/100 ML 2 GM/100 ML BAG IV SCH (06:43)
[2021-05-22] MEDS: AZITHROMYCIN/NS 500 MG/250 ML 500 MG/250 ML BAG IV SCH (06:44)
--- NOTE | 2021-05-22 13:00 | Progress Note ---
Assessment and Plan - Patient Problems (1) Elevated troponin Current Visit: Yes Status: Acute Plan to address problem: Elevated troponin troponin levels likely in nonspecific incidental finding in this clinical presentation with severe dehydration following extensive surgery and chemotherapy for gallbladder and pancreatic cancer. Review of her records from [place] showed that in October 2020 an echocardiogram showed normal left ventricular systolic function with ejection fraction 55%. At that time, she underwent a cardiac PET ischemia scan that was normal. Subjective Date of service: 05/22/21 Principal diagnosis: Weakness, elevated troponin Interval history: Patient is comfortable, no cardiac complaints. Review of her records from [place] showed that in October 2020 an echocardiogram showed normal left ventricular systolic function with ejection fraction 55%. At that time, she underwent a cardiac PET ischemia scan that was normal. Objective Vital Signs Temp Pulse Pulse Resp Resp BP Pulse Ox 05/22/21 12:04 97.7 F 67 18 107/90 87 05/22/21 09:03 98 05/22/21 08:39 97.7 F 75 18 118/82 95 05/22/21 03:57 97.4 F L 73 16 121/85 97 05/21/21 23:13 97.4 F L 69 16 121/76 85 05/21/21 21:51 95 05/21/21 21:50 105 H 18 05/21/21 19:20 97.4 F L 109 H 18 122/75 95 05/21/21 16:53 97.4 F L 68 18 106/72 87 05/21/21 14:00 105 H 18 - Physical Examination General: No Apparent Distress, Cachectic HEENT: Positive: PERRL Neck: Positive: neck supple Cardiac: Positive: Reg Rate and Rhythm Lungs: Positive: clear to auscultation Neuro: Positive: Grossly Intact Abdomen: Positive: Soft Skin: Positive: Clear Extremities: Absent: edema
[2021-05-22] MEDS: HEPARIN 5,000 UNIT/1 ML VIAL SUB-Q SCH ×2 (13:32→21:52)
[2021-05-22] MEDS: ASPIRIN EC 325 MG TAB PO SCH (13:32)
[2021-05-22] MEDS: carvediloL 3.125 MG TAB PO SCH ×2 (13:33→21:51)
--- NOTE | 2021-05-22 15:17 | Progress Note ---
Assessment and Plan --Non-ST elevation [place] Current Visit: Yes Status: Acute Aspirin 325 mg p.o. daily. Lipitor 40 mg p.o. daily. Serial cardiac enzyme. Cardiology evaluation noted and appreciated Low-dose beta-blockers, RASHEEDA inhibitors Medical records from [place] requested --Acute toxic metabolic encephalopathy Current Visit: Yes Status: Acute Metabolic encephalopathy secondary to sepsis pneumonia. Oxygen per nasal cannula 3 L/min. DuoNeb by nebulizer every 4 hours. IV fluid. Rocephin 2 g IV daily and Zithromax 500 mg IV daily. Follow blood culture urine culture. --Acute kidney injury; due to vasomotor nephropathy Current Visit: Yes Status: Acute Worsening renal function, gentle hydration Monitor renal function, avoid nephrotoxins Renal dosing of medication, check renal ultrasound Consult nephrology - Left lower lobe pneumonia/community-acquired Current Visit: Yes Status: Acute Empiric antibiotics, follow cultures Oxygen titrate O2 sats to more than 90% Supportive care --Sepsis secondary to community-acquired pneumonia Current Visit: Yes Status: Acute Tachycardia, lactic acidosis, hypotension, pneumonia on x-ray Treat the underlying cause, continue antibiotics Check procalcitonin, follow cultures --Lactic acidosis Current Visit: Yes Status: Acute Due to sepsis due to pneumonia, IV fluids Rocephin 2 g IV daily and Zithromax 500 mg IV daily. Follow blood cultures --h/o pancreatic head cancer Current Visit: Yes Status: Acute Patient has outpatient follow-up at [facility] s/p chemo and radiation therapy -DVT prophylaxis advance care planning Current Visit: Yes Status: Acute Heparin 5000 units subcu every 8 hours for DVT prophylaxis. Pepcid 20 mg p.o. twice daily for GI prophylaxis. Patient is a full code Advance care planning: Discussed plan of care with patient family at the bedside Daily clinical course: 05/21; patient feels slightly better, cardiology following, requested medical records from [place] Continue current management, cultures negative to date 05/22 Sister requested placement. CM consulted for placement. Review of her records from [place] showed that in October 2020 an echocardiogram showed normal left ventricular systolic function with ejection fraction 55%. At that time, she underwent a cardiac PET ischemia scan that was normal. Elevated troponin troponin levels likely in nonspecific incidental finding in this clinical presentation with severe dehydration following extensive surgery and chemotherapy for gallbladder and pancreatic cancer. follow clinically. Disposition; Discharge when stable and cleared by cardiology. Subjective Date of service: 05/22/21 Principal diagnosis: Weakness, elevated troponin Interval history: Patient seen and examined. Medical records and medication list reviewed. No acute event overnight noted by the RN. Patient denies any chest pain or difficulty breathing. Patient is tolerating diet. Discussed plan of care at bedside with patient's sister and requesting for placement. Objective - Exam Narrative Exam: GENERAL: Elderly -[place]oven[place] female lying on bed appeared to be in no discomfort. HEENT: Normocephalic. Atraumatic. No conjunctival congestion or icterus. Patient has moist mucous membranes. NECK: Supple. Trachea midline. CHEST/LUNGS: Clear to auscultated bilaterally, breathing nonlabored. No wheezes crackles or rhonchi. HEART/CARDIOVASCULAR: Regular in rate and rhythm. S1 and S2 positive. ABDOMEN: Abdomen is soft, nontender. Patient has normal bowel sounds. SKIN: There is no rash. Warm and dry. NEURO: No focal motor deficit. Follows command. MUSCULOSKELETAL: No joint effusion or tenderness. EXTRIMITY: No edema, no cyanosis or clubbing. PSYCH: Cooperative. - Constitutional Vitals: Vital Signs - 12hr 05/22/21 05/22/21 05/22/21 03:57 08:39 09:03 Temperature 97.4 F L 97.7 F Pulse Rate 73 75 Pulse Rate [ Anterior Bilateral Throughout] Respiratory 16 18 Rate Respiratory Rate [Anterior Bilateral Throughout] Blood Pressure 121/85 118/82 O2 Sat by Pulse 97 95 98 Oximetry 05/22/21 05/22/21 05/22/21 12:04 13:33 14:00 Temperature 97.7 F Pulse Rate 67 67 Pulse Rate [ 70 Anterior Bilateral Throughout] Respiratory 18 Rate Respiratory 19 Rate [Anterior Bilateral Throughout] Blood Pressure 107/90 107/90 O2 Sat by Pulse 87 Oximetry - Labs CBC & Chem 7: 05/26/21 05:38 05/27/21 06:42 HEART Score - HEART Score Troponin: Troponin T 0.133 ng/mL (0.00-0.029) H* 05/20/21 11:50
[2021-05-22] MEDS: FAMOTIDINE 20 MG/2 ML INJ IV SCH (18:51)
[2021-05-23] MEDS: IPRATROPIUM/ALBUTEROL SULFATE 3 ML AMPUL.NEB IH SCH ×4 (02:56→19:44)
[2021-05-23] MEDS: cefTRIAXone/NS 2 GM/100 ML 2 GM/100 ML BAG IV SCH (05:39)
[2021-05-23] MEDS: AZITHROMYCIN/NS 500 MG/250 ML 500 MG/250 ML BAG IV SCH (06:35)
[2021-05-23] MEDS: ASPIRIN EC 325 MG TAB PO SCH (09:42)
[2021-05-23] MEDS: HEPARIN 5,000 UNIT/1 ML VIAL SUB-Q SCH ×2 (09:42→22:05)
[2021-05-23] MEDS: FAMOTIDINE 20 MG/2 ML INJ IV SCH (09:42)
[2021-05-23] MEDS ORDERED: SODIUM CHLORIDE 0.9% 500 ML 500 ML IV ONE (12:37)
--- NOTE | 2021-05-23 12:41 | Progress Note ---
Assessment and Plan - Patient Problems (1) Elevated troponin Current Visit: Yes Status: Acute Plan to address problem: Elevated troponin troponin levels likely in nonspecific incidental finding in this clinical presentation with severe dehydration following extensive surgery and chemotherapy for gallbladder and pancreatic cancer. Review of her records from [place] showed that in October 2020 an echocardiogram showed normal left ventricular systolic function with ejection fraction 55%. At that time, she underwent a cardiac PET ischemia scan that was normal. (2) Atrial fibrillation/flutter Current Visit: Yes Status: Acute Plan to address problem: The patient's telemetry strips suggests intermittent atrial flutter fibrillation, I will order a twelve-lead EKG today for further assessment. Subjective Date of service: 05/23/21 Principal diagnosis: Weakness, elevated troponin Interval history: Patient is comfortable, no cardiac complaints. No new cardiac events reported. On pan devulcanizer helper, she has atrial flutter with ventricular rate in the 70s. Objective Vital Signs Temp Pulse Pulse Resp Resp BP BP 05/23/21 08:39 76 18 05/23/21 07:55 97.3 F L 51 L 92 H 98/62 05/23/21 07:54 97.3 F L 18 98/62 05/23/21 04:25 05/23/21 02:51 05/22/21 23:04 98.4 F 64 16 108/67 05/22/21 22:25 05/22/21 20:32 77 19 05/22/21 20:15 64 05/22/21 19:44 98.5 F 64 16 104/74 05/22/21 16:50 97.2 F L 70 18 110/72 05/22/21 14:00 70 19 05/22/21 13:33 67 107/90 Pulse Ox 05/23/21 08:39 05/23/21 07:55 05/23/21 07:54 05/23/21 04:25 98 05/23/21 02:51 98 05/22/21 23:04 79 L 05/22/21 22:25 95 05/22/21 20:32 05/22/21 20:15 05/22/21 19:44 66 L 05/22/21 16:50 100 05/22/21 14:00 05/22/21 13:33 - Physical Examination General: No Apparent Distress, Cachectic HEENT: Positive: PERRL Neck: Positive: neck supple Cardiac: Positive: irregularly irregular Lungs: Positive: clear to auscultation Neuro: Positive: Grossly Intact Abdomen: Positive: Soft Skin: Positive: Clear Extremities: Absent: edema
--- NOTE | 2021-05-23 13:07 | Cat Scan Report ---
CT HEAD WITHOUT CONTRAST INDICATION : CODE STROKE CALL [phone] syncope. TECHNIQUE: Axial imaging performed from the skull apex through the skull base without the use of con trast. Sagittal and coronal reformatted images. All CT scans at this location are performed using C T dose reduction for ALARA by means of automated exposure control. 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 No acute parenchymal abnormality, hemorrhage, mass or mass effect. No extra-axial flu id collection. Ventricles: Ventricles are normal in size and appear symmetric. Bones: No acute osseous abnormality. Sinuses: Sinuses and mastoid air cells are clear. Soft tissues: Soft tissues including the orbits appear normal. IMPRESSION: No acute abnormality. No change since 05/20/2021. COMMUNICATION: Time of Communication (LOADER HELPER/CDT): 1203 hours Licensed Practitioner Receiving Report: DAVID Sky Signer Name: Justin Bermudez Jr, MD Signed: 05/23/2021 1:03 PM Workstation Name: [id number]
[2021-05-23] MEDS: FAMOTIDINE 20 MG TAB PO SCH (13:32)
--- NOTE | 2021-05-23 13:34 | Electrocardiograph Report ---
[facility] Test Date: 2021-05-23 Test Time: 13:01:04 Pat Name: SLADE CARLISLE Department: Room: A479 1 Gender: F Natural Resource Specialist: MALIKA : 1940 Requested By: RAJ ABDUL Order Number: [id number] Reading MD: Kezia Ann Measurements Intervals [place] Rate: 69 P: DC: QRS: -44 QRSD: 115 T: 255 QT: 508 QTc: 546 Interpretive Statements Atrial fibrillation with well-controlled ventricular rate Low voltage QRS Compared to ECG 05/20/2021 04:51:16 No significant change Electronically Signed On 05-23-2021 13:34:05 EST by Kezia Ann
[2021-05-23] MEDS: SODIUM CHLORIDE 0.9% 1000 ML 1,000 ML IV SCH ×2 (14:05→22:21)
--- NOTE | 2021-05-23 17:24 | Progress Note ---
Assessment and Plan --Syncopal episode likely from dehydration. BP recorded low during the event, initiated on iv fluid ordered CT head, activated stroke protocol, consulted tele medicine --Non-ST elevation [place] Current Visit: Yes Status: Acute Aspirin 325 mg p.o. daily. Lipitor 40 mg p.o. daily. Serial cardiac enzyme. Cardiology evaluation noted and appreciated Low-dose beta-blockers, RASHEEDA inhibitors Medical records from [place] requested --Acute toxic metabolic encephalopathy Current Visit: Yes Status: Acute Metabolic encephalopathy secondary to sepsis pneumonia. Oxygen per nasal cannula 3 L/min. DuoNeb by nebulizer every 4 hours. IV fluid. Rocephin 2 g IV daily and Zithromax 500 mg IV daily. Follow blood culture urine culture. --Acute kidney injury; due to vasomotor nephropathy Current Visit: Yes Status: Acute Worsening renal function, gentle hydration Monitor renal function, avoid nephrotoxins Renal dosing of medication, check renal ultrasound Consult nephrology - Left lower lobe pneumonia/community-acquired Current Visit: Yes Status: Acute Empiric antibiotics, follow cultures Oxygen titrate O2 sats to more than 90% Supportive care --Sepsis secondary to community-acquired pneumonia Current Visit: Yes Status: Acute Tachycardia, lactic acidosis, hypotension, pneumonia on x-ray Treat the underlying cause, continue antibiotics Check procalcitonin, follow cultures --Lactic acidosis Current Visit: Yes Status: Acute Due to sepsis due to pneumonia, IV fluids Rocephin 2 g IV daily and Zithromax 500 mg IV daily. Follow blood cultures --h/o pancreatic head cancer Current Visit: Yes Status: Acute Patient has outpatient follow-up at [facility] s/p chemo and radiation therapy -DVT prophylaxis advance care planning Current Visit: Yes Status: Acute Heparin 5000 units subcu every 8 hours for DVT prophylaxis. Pepcid 20 mg p.o. twice daily for GI prophylaxis. Patient is a full code Advance care planning: Discussed plan of care with patient family at the bedside Disposition; Discharge when stable and stroke work up negative Daily clinical course: 05/21; patient feels slightly better, cardiology following, requested medical records from [place] Continue current management, cultures negative to date 05/22 Sister requested placement. CM consulted for placement. Review of her records from [place] showed that in October 2020 an echocardiogram showed normal left ventricular systolic function with ejection fraction 55%. At that time, she underwent a cardiac PET ischemia scan that was normal. Elevated troponin troponin levels likely in nonspecific incidental finding in this clinical presentation with severe dehydration following extensive surgery and chemotherapy for gallbladder and pancreatic cancer. follow clinically. 05/23: patient had a syncopal episode while having a BM. code stroke activated. CT head ordered - showed no acute process. Subjective Date of service: 05/23/21 Principal diagnosis: Weakness, elevated troponin Interval history: Patient seen and examined. Medical records and medication list reviewed. patient had an episode of presyncopal episode while having BM initiated stroke protocol, updated family at the bedside Discussed plan of care at bedside with patient's Son Objective - Exam Narrative Exam: GENERAL: Elderly -[place] African female lying on bed appeared to be in no dis comfort. HEENT: Normocephalic. Atraumatic. No conjunctival congestion or icterus. Patient has moist mucous membranes. NECK: Supple. Trachea midline. CHEST/LUNGS: Clear to auscultated bilaterally, breathing nonlabored. No wheezes crackles or rhonchi. HEART/CARDIOVASCULAR: Regular in rate and rhythm. S1 and S2 positive. ABDOMEN: Abdomen is soft, nontender. Patient has normal bowel sounds. SKIN: There is no rash. Warm and dry. NEURO: No focal motor deficit. Follows command. MUSCULOSKELETAL: No joint effusion or tenderness. EXTRIMITY: No edema, no cyanosis or clubbing. PSYCH: Cooperative. - Constitutional Vitals: Vital Signs - 12hr 05/23/21 05/23/21 05/23/21 07:54 07:55 08:39 Temperature 97.3 F L 97.3 F L Pulse Rate 51 L Pulse Rate [ 76 Anterior Bilateral Throughout] Respiratory 18 92 H Rate Respiratory 18 Rate [Anterior Bilateral Throughout] Blood Pressure 98/62 Blood Pressure 98/62 [Left] O2 Sat by Pulse Oximetry 05/23/21 05/23/21 05/23/21 10:00 10:59 14:54 Temperature 98.0 F Pulse Rate 67 Pulse Rate [ 74 Anterior Bilateral Throughout] Respiratory 24 Rate Respiratory 18 Rate [Anterior Bilateral Throughout] Blood Pressure 98/60 Blood Pressure [Left] O2 Sat by Pulse 95 94 Oximetry 05/23/21 16:13 Temperature 98.0 F Pulse Rate 71 Pulse Rate [ Anterior Bilateral Throughout] Respiratory 22 Rate Respiratory Rate [Anterior Bilateral Throughout] Blood Pressure 105/57 Blood Pressure [Left] O2 Sat by Pulse 95 Oximetry - Labs CBC & Chem 7: 03/06/22 05:38 05/27/21 06:42 Labs: Abnormal lab results 05/23/21 Range/Units 12:33 POC Glucose 145 H (70-105) mg/dL HEART Score - HEART Score Troponin: Troponin T 0.133 ng/mL (0.00-0.029) H* 05/20/21 11:50
[2021-05-23] MEDS: carvediloL 3.125 MG TAB PO SCH ×3 (18:54→22:12)
[2021-05-23 19:11] LABS: Hemoglobin 11.9 gm/dl (10.1-14.3); Mean Corpuscular HGB Conc 34 % (30-34); Mean Corpuscular Volume 99 fl (79-97); Red Blood Count 3.55 M/mm3 (3.65-5.03); Red Cell Distribution Width 17.5 % (13.2-15.2)
[2021-05-23 19:14] LABS: Platelet Count 68 K/mm3 (140-440)
[2021-05-23] MEDS ORDERED: ATROPINE 0.1% (1 MG/10 ML) CARDIAC SYRINGE IV ONE (23:02)
[2021-05-24] MEDS ORDERED: ATROPINE 0.1% (1 MG/10 ML) CARDIAC SYRINGE IV ONE (03:08)
[2021-05-24] MEDS: cefTRIAXone/NS 2 GM/100 ML 2 GM/100 ML BAG IV SCH (05:18)
[2021-05-24] MEDS: IPRATROPIUM/ALBUTEROL SULFATE 3 ML AMPUL.NEB IH SCH ×3 (09:50→23:33)
[2021-05-24] MEDS: HEPARIN 5,000 UNIT/1 ML VIAL SUB-Q SCH (09:58)
[2021-05-24] MEDS: FAMOTIDINE 20 MG TAB PO SCH (09:58)
[2021-05-24] MEDS: ASPIRIN EC 325 MG TAB PO SCH (09:58)
[2021-05-24] MEDS: AZITHROMYCIN 250 MG TAB PO SCH (09:59)
[2021-05-24] MEDS: SODIUM CHLORIDE 0.9% 1000 ML 1,000 ML IV SCH (10:04)
--- NOTE | 2021-05-24 13:21 | Progress Note ---
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 Incidental finding of a mild elevated troponin level is likely nonspecific finding. Review of her records from [place] showed that in October 2020 an echocardiogram showed normal left ventricular systolic function with ejection fraction 55%. At that time, she also underwent a cardiac PET ischemia scan that was normal. (2) Atrial fibrillation/flutter Current Visit: Yes Status: Acute Plan to address problem: Patient was in sinus rhythm on presentation, but over the course of her hospitalization noted with asymptomatic atrial fibrillation and flutter. She is currently on subcu heparin, but ultimately may be considered for long-term oral anticoagulation. Subjective Date of service: 05/24/21 Principal diagnosis: Weakness, elevated troponin Interval history: Patient appears lethargic, but is breathing comfortably on room air. teletypesetter monitor shows sinus rhythm with frequent PACs and intermittent PVCs. Objective Vital Signs Temp Pulse Pulse Resp Resp BP BP 05/24/21 11:17 98.3 F 63 19 117/74 05/24/21 09:50 63 16 05/24/21 07:13 98.4 F 87 18 108/79 05/24/21 07:04 108/75 05/24/21 03:45 05/24/21 03:14 98.7 F 58 L 17 93/42 05/23/21 23:25 05/23/21 22:43 05/23/21 22:42 98.2 F 59 L 18 102/48 05/23/21 20:15 59 L 05/23/21 19:44 71 16 05/23/21 19:20 98.2 F 68 18 105/49 05/23/21 16:13 98.0 F 71 22 105/57 05/23/21 14:54 74 18 Pulse Ox 05/24/21 11:17 93 05/24/21 09:50 05/24/21 07:13 89 05/24/21 07:04 05/24/21 03:45 93 05/24/21 03:14 85 05/23/21 23:25 95 05/23/21 22:43 93 05/23/21 22:42 69 L 05/23/21 20:15 05/23/21 19:44 05/23/21 19:20 98 05/23/21 16:13 95 05/23/21 14:54 - Physical Examination General: No Apparent Distress, Cachectic HEENT: Positive: PERRL Neck: Positive: neck supple Cardiac: Positive: Irregularly Regular Lungs: Positive: Decreased Breath Sounds Neuro: Positive: Grossly Intact Abdomen: Positive: Soft Skin: Positive: Clear Extremities: Absent: edema - Labs and Meds CBC 05/23/21 Range/Units 18:52 WBC 5.1 (4.5-11.0) K/mm3 RBC 3.55 L (3.65-5.03) M/mm3 Hgb 11.9 (10.1-14.3) gm/dl Hct 35.0 D (30.3-42.9) % Plt Count 68 L (140-440) K/mm3 Comprehensive Metabolic Panel 05/23/21 Range/Units 18:52 Sodium 144 (137-145) mmol/L Potassium 4.2 (3.6-5.0) mmol/L Chloride 114.1 H (98-107) mmol/L Carbon Dioxide 18 L (22-30) mmol/L BUN 36 H (7-17) mg/dL Creatinine 1.5 H (0.6-1.2) mg/dL Glucose 140 H (65-100) mg/dL Calcium 10.0 (8.4-10.2) mg/dL
[2021-05-24] MEDS: carvediloL 3.125 MG TAB PO SCH ×2 (15:24→22:56)
--- NOTE | 2021-05-24 16:18 | Progress Note ---
Assessment and Plan --Syncopal episode likely from dehydration. BP recorded low during the event, initiated on iv fluid ordered CT head, activated stroke protocol, consulted tele medicine --Non-ST elevation [place] Current Visit: Yes Status: Acute Aspirin 325 mg p.o. daily. Lipitor 40 mg p.o. daily. Serial cardiac enzyme. Cardiology evaluation noted and appreciated Low-dose beta-blockers, RASHEEDA inhibitors Medical records from [place] requested --Acute toxic metabolic encephalopathy Current Visit: Yes Status: Acute Metabolic encephalopathy secondary to sepsis pneumonia. Oxygen per nasal cannula 3 L/min. DuoNeb by nebulizer every 4 hours. IV fluid. Rocephin 2 g IV daily and Zithromax 500 mg IV daily. Follow blood culture urine culture. --Acute kidney injury; due to vasomotor nephropathy Current Visit: Yes Status: Acute Worsening renal function, gentle hydration Monitor renal function, avoid nephrotoxins Renal dosing of medication, check renal ultrasound Consult nephrology - Left lower lobe pneumonia/community-acquired Current Visit: Yes Status: Acute Empiric antibiotics, follow cultures Oxygen titrate O2 sats to more than 90% Supportive care --Sepsis secondary to community-acquired pneumonia Current Visit: Yes Status: Acute Tachycardia, lactic acidosis, hypotension, pneumonia on x-ray Treat the underlying cause, continue antibiotics Check procalcitonin, follow cultures --Lactic acidosis Current Visit: Yes Status: Acute Due to sepsis due to pneumonia, IV fluids Rocephin 2 g IV daily and Zithromax 500 mg IV daily. Follow blood cultures --h/o pancreatic head cancer Current Visit: Yes Status: Acute Patient has outpatient follow-up at [facility] s/p chemo and radiation therapy -DVT prophylaxis advance care planning Current Visit: Yes Status: Acute Heparin 5000 units subcu every 8 hours for DVT prophylaxis. Pepcid 20 mg p.o. twice daily for GI prophylaxis. Patient is a full code Advance care planning: Discussed plan of care with patient family at the bedside Disposition; Discharge when stable and stroke work up negative Daily clinical course: 05/21; patient feels slightly better, cardiology following, requested medical records from [place] Continue current management, cultures negative to date 05/22 Sister requested placement. CM consulted for placement. Review of her records from [place] showed that in October 2020 an echocardiogram showed normal left ventricular systolic function with ejection fraction 55%. At that time, she underwent a cardiac PET ischemia scan that was normal. Elevated troponin troponin levels likely in nonspecific incidental finding in this clinical presentation with severe dehydration following extensive surgery and chemotherapy for gallbladder and pancreatic cancer. follow clinically. 05/23: patient had a syncopal episode while having a BM. code stroke activated. CT head ordered - showed no acute process. 05/24: CT head w/o any acute process, neuro eval pending. pending SNF placement Subjective Date of service: 05/24/21 Principal diagnosis: Weakness, elevated troponin Interval history: Patient seen and examined. Medical records and medication list reviewed. patient doing better, no acute event o/n pending placement Objective - Exam Narrative Exam: GENERAL: Elderly -[place]ian female lying on bed appeared to be in no discomfort. HEENT: Normocephalic. Atraumatic. No conjunctival congestion or icterus. Patient has moist mucous membranes. NECK: Supple. Trachea midline. CHEST/LUNGS: Clear to auscultated bilaterally, breathing nonlabored. No wheezes crackles or rhonchi. HEART/CARDIOVASCULAR: Regular in rate and rhythm. S1 and S2 positive. ABDOMEN: Abdomen is soft, nontender. Patient has normal bowel sounds. SKIN: There is no rash. Warm and dry. NEURO: No focal motor deficit. Follows command. MUSCULOSKELETAL: No joint effusion or tenderness. EXTRIMITY: No edema, no cyanosis or clubbing. PSYCH: Cooperative. - Constitutional Vitals: Vital Signs - 12hr 05/24/21 05/24/21 05/24/21 07:04 07:13 09:50 Temperature 98.4 F Pulse Rate 87 Pulse Rate [ 63 Anterior Bilateral Throughout] Respiratory 18 Rate Respiratory 16 Rate [Anterior Bilateral Throughout] Blood Pressure 108/75 108/79 Blood Pressure [Left] O2 Sat by Pulse 89 Oximetry 05/24/21 05/24/21 11:17 15:29 Temperature 98.3 F Pulse Rate 63 Pulse Rate [ 70 Anterior Bilateral Throughout] Respiratory 19 Rate Respiratory 16 Rate [Anterior Bilateral Throughout] Blood Pressure Blood Pressure 117/74 [Left] O2 Sat by Pulse 93 Oximetry - Labs CBC & Chem 7: 05/26/21 05:38 05/27/21 06:42 Labs: Abnormal lab results 05/23/21 05/23/21 Range/Units 18:52 18:52 RBC 3.55 L (3.65-5.03) M/mm3 MCV 99 H (79-97) fl MCH 33 H (28-32) pg RDW 17.5 H (13.2-15.2) % Plt Count 68 L (140-440) K/mm3 Chloride 114.1 H (98-107) mmol/L Carbon Dioxide 18 L (22-30) mmol/L BUN 36 H (7-17) mg/dL Creatinine 1.5 H (0.6-1.2) mg/dL Glucose 140 H (65-100) mg/dL HEART Score - HEART Score Troponin: Troponin T 0.133 ng/mL (0.00-0.029) H* 05/20/21 11:50
[2021-05-24 18:17] LABS: Hemoglobin 12.4 gm/dl (10.1-14.3); Mean Corpuscular HGB Conc 32 % (30-34); Mean Corpuscular Volume 99 fl (79-97); Red Blood Count 3.93 M/mm3 (3.65-5.03); Red Cell Distribution Width 17.4 % (13.2-15.2)
[2021-05-24 18:32] LABS: Platelet Count 92 K/mm3 (140-440)
[2021-05-24 18:37] LABS: INR 1.28 (0.87-1.13)
[2021-05-24 18:38] LABS: Partial Thromboplastin Time 50.9 Sec. (24.2-36.6)
[2021-05-24] MEDS: APIXABAN 2.5 MG TAB PO SCH (22:58)
[2021-05-25] MEDS: SODIUM CHLORIDE 0.9% 1000 ML 1,000 ML IV SCH ×2 (02:25→11:48)
[2021-05-25] MEDS: AZITHROMYCIN 250 MG TAB PO SCH (10:00)
[2021-05-25] MEDS: APIXABAN 2.5 MG TAB PO SCH ×2 (10:00→21:31)
[2021-05-25] MEDS: carvediloL 3.125 MG TAB PO SCH (10:00)
[2021-05-25] MEDS: FAMOTIDINE 20 MG TAB PO SCH (10:00)
[2021-05-25] MEDS: IPRATROPIUM/ALBUTEROL SULFATE 3 ML AMPUL.NEB IH SCH ×3 (10:03→22:10)
--- NOTE | 2021-05-25 10:52 | Progress Note ---
Assessment and Plan Pneumonia Paroxysmal atrial fibrillation/flutter with slow conduction and nonsignificant pauses at night. Gallbladder/Pancreatic CA s/p surgery/chemotherapy Nonspecific troponin elevation: Not consistent with ACS October 2020 echocardiogram showed normal left ventricular systolic function with ejection fraction 55%. At that time, she also underwent a cardiac PET ischemia scan that was normal. Recommend: Given periods of slow conduction with AF, stop coreg. Can add other anti- hypertensive agent if needed. Continue systemic anticoagulation with low dose eliquis (Cr 1.5 and will soon be 80) Subjective Date of service: 05/25/21 Principal diagnosis: Weakness, elevated troponin Interval history: No acute events Objective Vital Signs Temp Pulse Pulse Resp Resp BP BP 05/25/21 10:03 88 18 05/25/21 08:59 16 05/25/21 08:07 97.6 F 52 L 17 106/57 05/25/21 02:59 97.2 F L 44 L 16 98/62 05/24/21 23:36 88 18 05/24/21 23:00 68 18 05/24/21 22:40 97.6 F 39 L 16 104/55 05/24/21 19:20 98.4 F 64 18 112/58 05/24/21 15:29 70 16 05/24/21 15:04 98.4 F 55 L 18 114/60 05/24/21 11:17 98.3 F 63 19 117/74 05/24/21 11:00 18 Pulse Ox 05/25/21 10:03 05/25/21 08:59 96 05/25/21 08:07 95 05/25/21 02:59 99 05/24/21 23:36 05/24/21 23:00 100 05/24/21 22:40 86 05/24/21 19:20 87 05/24/21 15:29 05/24/21 15:04 92 05/24/21 11:17 93 05/24/21 11:00 95 - Physical Examination General: No Apparent Distress, Cachectic HEENT: Positive: PERRL Neck: Positive: neck supple Cardiac: Positive: irregularly irregular Lungs: Positive: clear to auscultation Neuro: Positive: Grossly Intact Abdomen: Positive: Soft Skin: Positive: Clear Extremities: Absent: edema - Labs and Meds Coagulation 05/24/21 Range/Units 17:33 PT 17.5 H (12.2-14.9) Sec. INR 1.28 H (0.87-1.13) APTT 50.9 H (24.2-36.6) Sec. CBC 05/24/21 Range/Units 17:34 WBC 5.2 (4.5-11.0) K/mm3 RBC 3.93 (3.65-5.03) M/mm3 Hgb 12.4 (10.1-14.3) gm/dl Hct 39.0 (30.3-42.9) % Plt Count 92 L (140-440) K/mm3 Comprehensive Metabolic Panel 05/24/21 Range/Units 17:33 Creatinine 1.5 H (0.6-1.2) mg/dL
--- NOTE | 2021-05-25 23:58 | Progress Note ---
Assessment and Plan --Syncopal episode likely from dehydration. BP recorded low during the event, initiated on iv fluid CT head w/o any acute process, activated stroke protocol, consulted neuro --Non-ST elevation MS Current Visit: Yes Status: Acute Aspirin 325 mg p.o. daily. Lipitor 40 mg p.o. daily. Serial cardiac enzyme. Cardiology evaluation noted and appreciated Low-dose beta-blockers, RASHEEDA inhibitors Medical records from [place] requested --Acute toxic metabolic encephalopathy Current Visit: Yes Status: Acute Metabolic encephalopathy secondary to sepsis pneumonia. Oxygen per nasal cannula 3 L/min. DuoNeb by nebulizer every 4 hours. IV fluid. Rocephin 2 g IV daily and Zithromax 500 mg IV daily. Follow blood culture urine culture. --Acute kidney injury; due to vasomotor nephropathy Current Visit: Yes Status: Acute Worsening renal function, gentle hydration Monitor renal function, avoid nephrotoxins Renal dosing of medication, check renal ultrasound Consult nephrology - Left lower lobe pneumonia/community-acquired Current Visit: Yes Status: Acute Empiric antibiotics, follow cultures Oxygen titrate O2 sats to more than 90% Supportive care --Sepsis secondary to community-acquired pneumonia Current Visit: Yes Status: Acute Tachycardia, lactic acidosis, hypotension, pneumonia on x-ray Treat the underlying cause, continue antibiotics Check procalcitonin, follow cultures --Lactic acidosis Current Visit: Yes Status: Acute Due to sepsis due to pneumonia, IV fluids Rocephin 2 g IV daily and Zithromax 500 mg IV daily. Follow blood cultures --h/o pancreatic head cancer Current Visit: Yes Status: Acute Patient has outpatient follow-up at [facility] s/p chemo and radiation therapy -DVT prophylaxis advance care planning Current Visit: Yes Status: Acute Heparin 5000 units subcu every 8 hours for DVT prophylaxis. Pepcid 20 mg p.o. twice daily for GI prophylaxis. Patient is a full code Advance care planning: Discussed plan of care with patient family at the bedside Disposition; Discharge when stable and stroke work up negative Daily clinical course: 05/21; patient feels slightly better, cardiology following, requested medical records from [place] Continue current management, cultures negative to date 05/22 Sister requested placement. CM consulted for placement. Review of her records from [place] showed that in October 2020 an echocardiogram showed normal left ventricular systolic function with ejection fraction 55%. At that time, she underwent a cardiac PET ischemia scan that was normal. Elevated troponin troponin levels likely in nonspecific incidental finding in this clinical presentation with severe dehydration following extensive surgery and chemotherapy for gallbladder and pancreatic cancer. follow clinically. 05/23: patient had a syncopal episode while having a BM. code stroke activated. CT head ordered - showed no acute process. 05/24: CT head w/o any acute process, neuro eval pending. pending SNF placement 05/25: pending neuro eval. patient clinically stable. BP stable. tolerating diet. pending placement. Subjective Date of service: 05/25/21 Principal diagnosis: Weakness, elevated troponin Interval history: Patient seen and examined. Medical records and medication list reviewed. patient doing better, no acute event o/n pending placement to SNF Objective - Exam Narrative Exam: GENERAL: Elderly -[place] female lying on bed appeared to be in no discomfort. HEENT: Normocephalic. Atraumatic. No conjunctival congestion or icterus. Patient has moist mucous membranes. NECK: Supple. Trachea midline. CHEST/LUNGS: Clear to auscultated bilaterally, breathing nonlabored. No wheezes crackles or rhonchi. HEART/CARDIOVASCULAR: Regular in rate and rhythm. S1 and S2 positive. ABDOMEN: Abdomen is soft, nontender. Patient has normal bowel sounds. SKIN: There is no rash. Warm and dry. NEURO: No focal motor deficit. Follows command. MUSCULOSKELETAL: No joint effusion or tenderness. EXTRIMITY: No edema, no cyanosis or clubbing. PSYCH: Cooperative. - Constitutional Vitals: Vital Signs - 12hr 05/25/21 05/25/21 05/25/21 12:05 16:14 16:35 Temperature 98.1 F 98.0 F Pulse Rate 50 L 47 L Pulse Rate [ 70 Anterior Bilateral Throughout] Respiratory 18 18 Rate Respiratory 18 Rate [Anterior Bilateral Throughout] Blood Pressure 105/53 130/53 O2 Sat by Pulse 97 99 Oximetry 05/25/21 05/25/21 19:50 22:45 Temperature 98.3 F Pulse Rate 63 Pulse Rate [ Anterior Bilateral Throughout] Respiratory 18 18 Rate Respiratory Rate [Anterior Bilateral Throughout] Blood Pressure 114/53 O2 Sat by Pulse 97 96 Oximetry - Labs CBC & Chem 7: 05/26/21 05:38 05/27/21 06:42 HEART Score - HEART Score Troponin: Troponin T 0.133 ng/mL (0.00-0.029) H* 05/20/21 11:50
[2021-05-26] MEDS: SODIUM CHLORIDE 0.9% 1000 ML 1,000 ML IV SCH ×2 (01:02→09:26)
[2021-05-26 06:11] LABS: Hematocrit 34.5 % (30.3-42.9); Hemoglobin 11.2 gm/dl (10.1-14.3); Mean Corpuscular HGB Conc 33 % (30-34); Mean Corpuscular Volume 98 fl (79-97); Red Blood Count 3.53 M/mm3 (3.65-5.03); Red Cell Distribution Width 17.2 % (13.2-15.2)
[2021-05-26 06:22] LABS: Platelet Count 84 K/mm3 (140-440)
[2021-05-26] MEDS: APIXABAN 2.5 MG TAB PO SCH ×2 (09:25→22:19)
[2021-05-26] MEDS: FAMOTIDINE 20 MG TAB PO SCH (09:25)
[2021-05-26] MEDS: IPRATROPIUM/ALBUTEROL SULFATE 3 ML AMPUL.NEB IH SCH ×3 (09:31→22:13)
--- NOTE | 2021-05-26 11:06 | Progress Note ---
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 Gallbladder/Pancreatic CA s/p surgery/chemotherapy Nonspecific troponin elevation: Not consistent with ACS October 2020 echocardiogram showed normal left ventricular systolic function with ejection fraction 55%. At that time, she also underwent a cardiac PET ischemia scan that was normal. Recommend: Given periods of slow conduction and pauses with AF, stopped coreg on 05/25/21. BP stable thus far without coreg. Continue systemic anticoagulation with low dose eliquis (Cr 1.5 and will soon be 80) Subjective Date of service: 05/26/21 Principal diagnosis: Weakness, elevated troponin Interval history: Coreg stopped yesterday. BP remains stable. Objective Vital Signs Temp Pulse Pulse Resp Resp BP Pulse Ox 05/26/21 10:00 18 98 05/26/21 09:31 89 18 05/26/21 08:29 97.9 F 18 104/48 05/26/21 04:47 98.0 F 47 L 18 104/55 98 05/25/21 22:45 18 96 05/25/21 19:50 98.3 F 63 18 114/53 97 05/25/21 16:35 70 18 05/25/21 16:14 98.0 F 47 L 18 130/53 99 05/25/21 12:05 98.1 F 50 L 18 105/53 97 - Physical Examination General: No Apparent Distress, Cachectic HEENT: Positive: PERRL Neck: Positive: neck supple Cardiac: Positive: irregularly irregular Lungs: Positive: clear to auscultation Neuro: Positive: Grossly Intact Abdomen: Positive: Soft Skin: Positive: Clear Extremities: Absent: edema - Labs and Meds CBC 05/26/21 Range/Units 05:38 WBC 4.3 L (4.5-11.0) K/mm3 RBC 3.53 L (3.65-5.03) M/mm3 Hgb 11.2 (10.1-14.3) gm/dl Hct 34.5 (30.3-42.9) % Plt Count 84 L (140-440) K/mm3
--- NOTE | 2021-05-26 22:35 | Progress Note ---
Assessment and Plan --Syncopal episode likely from dehydration. BP recorded low during the event, resolved with iv fluid CT head w/o any acute process, activated stroke protocol, consulted neuro --Non-ST elevation SD Current Visit: Yes Status: Acute Aspirin 325 mg p.o. daily. Lipitor 40 mg p.o. daily. Serial cardiac enzyme. Cardiology evaluation noted and appreciated Low-dose beta-blockers, RASHEEDA inhibitors Medical records from [place] requested --Acute toxic metabolic encephalopathy Current Visit: Yes Status: Acute Metabolic encephalopathy secondary to sepsis pneumonia. Oxygen per nasal cannula 3 L/min. DuoNeb by nebulizer every 4 hours. IV fluid. Rocephin 2 g IV daily and Zithromax 500 mg IV daily. Follow blood culture urine culture. --Acute kidney injury; due to vasomotor nephropathy Current Visit: Yes Status: Acute Worsening renal function, gentle hydration Monitor renal function, avoid nephrotoxins Renal dosing of medication, check renal ultrasound Consult nephrology - Left lower lobe pneumonia/community-acquired Current Visit: Yes Status: Acute Empiric antibiotics, follow cultures Oxygen titrate O2 sats to more than 90% Supportive care --Sepsis secondary to community-acquired pneumonia Current Visit: Yes Status: Acute Tachycardia, lactic acidosis, hypotension, pneumonia on x-ray Treat the underlying cause, continue antibiotics Check procalcitonin, follow cultures --Lactic acidosis Current Visit: Yes Status: Acute Due to sepsis due to pneumonia, IV fluids Rocephin 2 g IV daily and Zithromax 500 mg IV daily. Follow blood cultures --h/o pancreatic head cancer Current Visit: Yes Status: Acute Patient has outpatient follow-up at [facility] s/p chemo and radiation therapy -DVT prophylaxis advance care planning Current Visit: Yes Status: Acute Heparin 5000 units subcu every 8 hours for DVT prophylaxis. Pepcid 20 mg p.o. twice daily for GI prophylaxis. Patient is a full code Advance care planning: Discussed plan of care with patient family at the bedside Disposition; Discharge when stable and stroke work up negative Daily clinical course: 05/21; patient feels slightly better, cardiology following, requested medical records from [place] Continue current management, cultures negative to date 05/22 Sister requested placement. CM consulted for placement. Review of her records from [place] showed that in October 2020 an echocardiogram showed normal left ventricular systolic function with ejection fraction 55%. At that time, she underwent a cardiac PET ischemia scan that was normal. Elevated troponin troponin levels likely in nonspecific incidental finding in this clinical presentation with severe dehydration following extensive surgery and chemotherapy for gallbladder and pancreatic cancer. follow clinically. 05/23: patient had a syncopal episode while having a BM. code stroke activated. CT head ordered - showed no acute process. 05/24: CT head w/o any acute process, neuro eval pending. pending SNF placement 05/25: pending neuro eval. patient clinically stable. BP stable. tolerating diet. pending placement. 05/26: Pending placement. pending neuro eval. cont to follow clinically. Subjective Date of service: 05/26/21 Principal diagnosis: Weakness, elevated troponin Interval history: Patient seen and examined. Medical records and medication list reviewed. patient doing better, no acute event o/n pending placement to SNF Objective - Exam Narrative Exam: GENERAL: Elderly -[place] female lying on bed appeared to be in no discomfort. HEENT: Normocephalic. Atraumatic. No conjunctival congestion or icterus. Patient has moist mucous membranes. NECK: Supple. Trachea midline. CHEST/LUNGS: Clear to auscultated bilaterally, breathing nonlabored. No wheezes crackles or rhonchi. HEART/CARDIOVASCULAR: Regular in rate and rhythm. S1 and S2 positive. ABDOMEN: Abdomen is soft, nontender. Patient has normal bowel sounds. SKIN: There is no rash. Warm and dry. NEURO: No focal motor deficit. Follows command. MUSCULOSKELETAL: No joint effusion or tenderness. EXTRIMITY: No edema, no cyanosis or clubbing. PSYCH: Cooperative. - Constitutional Vitals: Vital Signs - 12hr 05/26/21 05/26/21 05/26/21 11:23 15:46 15:56 Temperature 97.8 F 97.7 F Pulse Rate 88 81 Pulse Rate [ 58 L Anterior Bilateral Throughout] Respiratory 18 18 Rate Respiratory 18 Rate [Anterior Bilateral Throughout] Blood Pressure 109/46 Blood Pressure [Left] O2 Sat by Pulse 98 98 Oximetry 05/26/21 05/26/21 05/26/21 16:01 20:00 20:43 Temperature Pulse Rate 46 L Pulse Rate [ 64 Anterior Bilateral Throughout] Respiratory 18 Rate Respiratory 18 Rate [Anterior Bilateral Throughout] Blood Pressure 117/54 Blood Pressure 99/63 [Left] O2 Sat by Pulse 96 Oximetry 05/26/21 21:02 Temperature 97.9 F Pulse Rate Pulse Rate [ Anterior Bilateral Throughout] Respiratory Rate Respiratory Rate [Anterior Bilateral Throughout] Blood Pressure Blood Pressure [Left] O2 Sat by Pulse Oximetry - Labs CBC & Chem 7: 05/26/21 05:38 05/27/21 06:42 Labs: Abnormal lab results 05/26/21 Range/Units 05:38 WBC 4.3 L (4.5-11.0) K/mm3 RBC 3.53 L (3.65-5.03) M/mm3 MCV 98 H (79-97) fl RDW 17.2 H (13.2-15.2) % Plt Count 84 L (140-440) K/mm3 HEART Score - HEART Score Troponin: Troponin T 0.133 ng/mL (0.00-0.029) H* 05/20/21 11:50
[2021-05-27] MEDS: IPRATROPIUM/ALBUTEROL SULFATE 3 ML AMPUL.NEB IH SCH ×3 (11:06→21:15)
[2021-05-27] MEDS: APIXABAN 2.5 MG TAB PO SCH ×2 (11:13→22:12)
[2021-05-27] MEDS: FAMOTIDINE 20 MG TAB PO SCH (11:13)
--- NOTE | 2021-05-27 13:21 | Progress Note ---
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 Incidental finding of a mild elevated troponin level is likely nonspecific finding. Review of her records from [place] showed that in October 2020 an echocardiogram showed normal left ventricular systolic function with ejection fraction 55%. At that time, she also underwent a cardiac PET ischemia scan that was normal. (2) Atrial fibrillation/flutter Current Visit: Yes Status: Acute Plan to address problem: Patient was in sinus rhythm on presentation, but over the course of her hospitalization noted with asymptomatic atrial fibrillation and flutter. She is currently on 2.5 mg Eliquis for anticoagulation. Subjective Date of service: 05/27/21 Principal diagnosis: Weakness, elevated troponin Interval history: Patient is comfortable, no cardiac complaints. 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 Objective Vital Signs Temp Pulse Pulse Resp Resp BP BP 05/27/21 11:19 98 H 20 138/77 05/27/21 07:25 22 96/55 05/27/21 07:24 77 96/55 05/27/21 07:20 97.6 F 94 H 05/26/21 23:00 60 05/26/21 22:00 18 05/26/21 21:02 97.9 F 05/26/21 20:43 46 L 18 117/54 05/26/21 20:00 64 18 05/26/21 16:01 99/63 05/26/21 15:56 97.7 F 81 18 05/26/21 15:46 58 L 18 Pulse Ox 05/27/21 11:19 05/27/21 07:25 05/27/21 07:24 98 05/27/21 07:20 05/26/21 23:00 05/26/21 22:00 96 05/26/21 21:02 05/26/21 20:43 96 05/26/21 20:00 05/26/21 16:01 05/26/21 15:56 98 05/26/21 15:46 - Physical Examination General: No Apparent Distress, Cachectic HEENT: Positive: PERRL Neck: Positive: neck supple Cardiac: Positive: Irregularly Regular Lungs: Positive: Decreased Breath Sounds Neuro: Positive: Grossly Intact Abdomen: Positive: Soft Skin: Positive: Clear Extremities: Absent: edema - Labs and Meds Comprehensive Metabolic Panel 05/27/21 Range/Units 06:42 Sodium 141 (137-145) mmol/L Potassium 3.4 L (3.6-5.0) mmol/L Chloride 111.2 H (98-107) mmol/L Carbon Dioxide 19 L (22-30) mmol/L BUN 33 H (7-17) mg/dL Creatinine 1.8 H (0.6-1.2) mg/dL Glucose 140 H (65-100) mg/dL Calcium 10.0 (8.4-10.2) mg/dL
--- NOTE | 2021-05-27 14:08 | Consultation ---
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 Patient is alert but confused. She denied any chest pain or shortness of breath. She also denied any abdominal pain, nausea or vomiting. She stated that she was going to the bathroom and she just felt weak all over. No fever or chills. In the emergency room patient is found to have lactic acid of 5.90 , creatinine of 1.9 and a BUN of 48. Chest x-ray showed left lower lobe infiltrate. Troponin elevated also 0.122. So going to admit the patient we will put the patient on pneumonia pathway IV antibiotic according to pt. she feels weak and dizzy on standing up , denied syncopy , denied seizure denied CVA she was diagnosed with cancer gall bladder had chemotherapy 08/2020 but could not tolerate Past History Past Medical History: other (Gallbladder cancer) Past Surgical History: Other (Gallbladder cancer status post surgery) Social history: other (Unknown) Family history: no significant family history Medications and Allergies Allergies Allergy/AdvReac Type Severity Reaction Status Date / Time No Known Allergies Allergy Verified 05/20/21 04:45 Active Meds: Active Medications Sodium Chloride (Nacl 0.9% 1000 Ml) 1,000 mls @ 999 mls/hr IV BOLUS ONE Stop: 05/20/21 05:58 Review of Systems Constitutional: weakness, malaise, lethargy, other (Low blood pressure) Past History Past Medical History: other (Gallbladder and pancreatic cancer) Past Surgical History: Other (Gallbladder cancer status post surgery) Social history: other (Unknown) Family history: no significant family history Medications and Allergies Allergies Allergy/AdvReac Type Severity Reaction Status Date / Time No Known Allergies Allergy Verified 05/20/21 04:45 Home Medications Medication Instructions Recorded Confirmed Last Taken Type Empagliflozin [Jardiance] 10 mg PO QDAY 05/20/21 05/20/21 1 Day Ago History ~05/19/21 Furosemide [Lasix] 20 mg PO QDAY 05/20/21 05/20/21 1 Day Ago History ~05/19/21 Lipase/Protease/Amylase [Creon Dr 1 cap PO BID PRN 05/20/21 05/20/21 1 Day Ago History 24,000 Unit Capsule] ~05/19/21 Lipase/Protease/Amylase [Yoav Rockwell 2 cap PO TIDWM 05/20/21 05/20/21 1 Day Ago History 24,000 Unit Capsule] ~05/19/21 Peg 400/Hypromellose/Glycerin [Dry 1 drop OU BID 05/20/21 05/20/21 1 Day Ago History Eye Relief Eye Drops] ~05/19/21 Active Meds: Active Medications Acetaminophen (Acetaminophen 325 Mg Tab) 650 mg PO Q4H PRN PRN Reason: Pain MILD(1-3)/Fever >100.5/HERNANDEZ Last Admin: 05/25/21 21:31 Dose: 650 mg Albuterol (Albuterol 2.5 Mg/3 Ml Nebu) 2.5 mg IH Q3HRT PRN PRN Reason: Shortness Of Breath Albuterol/Ipratropium (Ipratropium/Albuterol Sulfate 3 Ml Ampul.Neb) 1 ampul IH TIDRT [facility] Last Admin: 05/27/21 14:07 Dose: 1 ampul Apixaban (Apixaban 2.5 Mg Tab) 2.5 mg PO Q12HR [facility]; Protocol Last Admin: 05/27/21 11:13 Dose: 2.5 mg Atorvastatin Calcium (Atorvastatin 40 Mg Tab) 40 mg PO QHS [facility] Last Admin: 05/26/21 22:19 Dose: 40 mg Famotidine (Famotidine 20 Mg Tab) 20 mg PO DAILY [facility] Last Admin: 05/27/21 11:13 Dose: 20 mg Hydromorphone HCl (Hydromorphone 1 Mg/1 Ml Inj) 0.5 mg IV Q3H PRN PRN Reason: Pain , Severe (7-10) Sodium Chloride (Nacl 0.9% 1000 Ml) 1,000 mls @ 125 mls/hr IV DIRECT [facility] Last Admin: 05/26/21 09:26 Dose: 125 mls/hr Morphine Sulfate (Morphine 2 Mg/1 Ml Inj) 2 mg IV Q4H PRN PRN Reason: Pain, Moderate (4-6) Morphine Sulfate (Morphine 4 Mg/1 Ml Inj) 2 mg IV Q5MIN PRN PRN Reason: Chest Pain unrelieved by NTG Nitroglycerin (Nitroglycerin 0.4 Mg Tab Subl) 0.4 mg SL Q5M PRN PRN Reason: Chest Pain Ondansetron HCl (Ondansetron 4 Mg/2 Ml Inj) 4 mg IV Q8H PRN PRN Reason: Nausea And Vomiting Sodium Chloride (Sodium Chloride 0.9% 10 Ml Flush Syringe) 10 ml IV BID AJ Last Admin: 05/26/21 22:19 Dose: 10 ml Sodium Chloride (Sodium Chloride 0.9% 10 Ml Flush Syringe) 10 ml IV PRN PRN PRN Reason: LINE FLUSH Tramadol HCl (Tramadol 50 Mg Tab) 50 mg PO Q6H PRN PRN Reason: Pain, Moderate (4-6) Physical Examination - Vital Signs Vital Signs: Vital Signs Temp Pulse Resp BP 97.4 F L 106 H 16 121/81 05/20/21 04:41 05/20/21 04:41 05/20/21 04:41 05/20/21 04:41 - Constitutional General appearance: comfortable - EENT EENT: Present: PERRL, mucous membranes moist - Respiratory Respiratory: Present: lungs clear, rhonchi - Cardiovascular Cardiovascular: Present: other (irregular) Extremities: Present: no peripheral edema bilatateraly, no clubbing, cyanosis - Gastrointestinal Gastrointestinal: Present: normoactive bowel sounds - Integumentary Integumentary: Present: normal - Neurologic Cranial nerve examination: PERRL, EOMI, intact Speech examination: intact Sensorimotor examination: intact Detailed motor examination: grossly full strength in Results - Laboratory Findings CBC and BMP: 05/26/21 05:38 05/27/21 06:42 Abnormal Lab Findings: Abnormal Labs 05/20/21 05/20/21 05/20/21 04:13 04:13 04:13 WBC RBC MCV 100 H MCH RDW 17.2 H Plt Count 100 L Lymph % (Auto) 7.0 L Howell % (Auto) Lymph # (Auto) 0.5 L Seg Neutrophils % 85.6 H PT 17.5 H INR 1.28 H APTT Potassium Chloride Carbon Dioxide 16 L BUN 48 H Creatinine 1.9 H Glucose 143 H POC Glucose Lactic Acid Calcium 11.3 H Total Bilirubin 1.40 H Direct Bilirubin 0.6 H AST 49 H Ammonia Troponin T 0.122 H* Albumin 2.9 L HDL Cholesterol 17 L 05/20/21 05/20/21 05/20/21 04:13 04:13 06:08 WBC RBC MCV 98 H MCH 33 H RDW 16.8 H Plt Count 97 L Lymph % (Auto) 4.4 L Howell % (Auto) 8.3 H Lymph # (Auto) 0.3 L Seg Neutrophils % 87.1 H PT INR APTT Potassium Chloride Carbon Dioxide BUN Creatinine Glucose POC Glucose Lactic Acid 5.90 H* Calcium Total Bilirubin Direct Bilirubin AST Ammonia 92.0 H Troponin T Albumin HDL Cholesterol 05/20/21 05/20/21 05/20/21 06:08 09:30 09:30 WBC RBC MCV MCH RDW Plt Count Lymph % (Auto) Howell % (Auto) Lymph # (Auto) Seg Neutrophils % PT INR APTT Potassium Chloride 107.9 H Carbon Dioxide 17 L 19 L BUN 45 H 45 H Creatinine 1.8 H 1.9 H Glucose 140 H 137 H POC Glucose Lactic Acid 4.20 H* Calcium 10.7 H 11.6 H Total Bilirubin Direct Bilirubin AST Ammonia Troponin T Albumin HDL Cholesterol 05/20/21 05/20/21 05/20/21 10:33 11:03 11:50 WBC RBC MCV MCH RDW Plt Count Lymph % (Auto) Howell % (Auto) Lymph # (Auto) Seg Neutrophils % PT INR APTT Potassium Chloride Carbon Dioxide BUN Creatinine Glucose POC Glucose 111 H Lactic Acid 4.50 H* Calcium Total Bilirubin Direct Bilirubin AST Ammonia Troponin T 0.133 H* Albumin HDL Cholesterol 05/21/21 05/21/21 05/21/21 01:42 05:33 05:33 WBC RBC MCV 99 H MCH RDW 16.8 H Plt Count 89 L Lymph % (Auto) Howell % (Auto) Lymph # (Auto) Seg Neutrophils % PT INR APTT Potassium Chloride 108.2 H Carbon Dioxide 19 L BUN 46 H Creatinine 2.2 H Glucose 132 H POC Glucose Lactic Acid 3.90 H* Calcium 11.4 H Total Bilirubin Direct Bilirubin AST Ammonia Troponin T Albumin HDL Cholesterol 05/21/21 05/23/21 05/23/21 05:33 12:33 18:52 WBC RBC MCV MCH RDW Plt Count Lymph % (Auto) Howell % (Auto) Lymph # (Auto) Seg Neutrophils % PT INR APTT Potassium Chloride 114.1 H Carbon Dioxide 18 L BUN 36 H Creatinine 1.5 H Glucose 140 H POC Glucose 145 H Lactic Acid 3.90 H* Calcium Total Bilirubin Direct Bilirubin AST Ammonia Troponin T Albumin HDL Cholesterol 05/23/21 05/24/21 05/24/21 18:52 17:33 17:33 WBC RBC 3.55 L MCV 99 H MCH 33 H RDW 17.5 H Plt Count 68 L Lymph % (Auto) Howell % (Auto) Lymph # (Auto) Seg Neutrophils % PT 17.5 H INR 1.28 H APTT 50.9 H Potassium Chloride Carbon Dioxide BUN Creatinine 1.5 H Glucose POC Glucose Lactic Acid Calcium Total Bilirubin Direct Bilirubin AST Ammonia Troponin T Albumin HDL Cholesterol 05/24/21 05/26/21 05/27/21 17:34 05:38 06:42 WBC 4.3 L RBC 3.53 L MCV 99 H 98 H MCH RDW 17.4 H 17.2 H Plt Count 92 L 84 L Lymph % (Auto) Howell % (Auto) Lymph # (Auto) Seg Neutrophils % PT INR APTT Potassium 3.4 L Chloride 111.2 H Carbon Dioxide 19 L BUN 33 H Creatinine 1.8 H Glucose 140 H POC Glucose Lactic Acid Calcium Total Bilirubin Direct Bilirubin AST Ammonia Troponin T Albumin HDL Cholesterol Assessment and Plan # Presyncopla spell -pt. discribes dizziness on standing with no syncopy -denied hx of seizure, or CVA -Ct brain is unremarkable -cardiac monitoring -need to check for orthostatic changes -Brain MRI preferably with gd -US carotid -review echo #non-ST elevation [place] # New onset AF -Aspirin 325 mg p.o. daily. Lipitor 40 mg p.o. daily. Serial cardiac enzyme. -Cardiology evaluation noted and appreciated -Low-dose beta-blockers, RASHEEDA inhibitors -Medical records from [place] requested # New onset AF -started on Eliquis #Acute toxic metabolic encephalopathy -Resolved #Acute kidney injury; due to vasomotor nephropathy -Worsening renal function, gentle hydration # Left lower lobe pneumonia/community-acquired -Empiric antibiotics, follow cultures -Oxygen titrate O2 sats to more than 90% -Supportive care #Sepsis secondary to community-acquired pneumonia -Tachycardia, lactic acidosis, hypotension, pneumonia on x-ray -Treat the underlying cause, continue antibiotics -Check procalcitonin, follow cultures #Lactic acidosis -Due to sepsis due to pneumonia, IV fluids -Rocephin 2 g IV daily and Zithromax 500 mg IV daily. Follow blood cultures #h/o Gallbladder cancer -Patient has gallbladder surgery status post surgery. Patient has recurrence of gallbladder cancer outpatient follow-up with oncology #DVT prophylaxis advance care planning -andi currently. -Pepcid 20 mg p.o. twice daily for GI prophylaxis. Patient is a full code
--- NOTE | 2021-05-27 18:37 | Progress Note ---
Assessment and Plan --Syncopal episode likely from dehydration. BP recorded low during the event, resolved with iv fluid CT head w/o any acute process, activated stroke protocol, consulted neuro --Non-ST elevation PA Current Visit: Yes Status: Acute Aspirin 325 mg p.o. daily. Lipitor 40 mg p.o. daily. Serial cardiac enzyme. Cardiology evaluation noted and appreciated Low-dose beta-blockers, RASHEEDA inhibitors Medical records from [place] requested --Acute toxic metabolic encephalopathy Current Visit: Yes Status: Acute Metabolic encephalopathy secondary to sepsis pneumonia. Oxygen per nasal cannula 3 L/min. DuoNeb by nebulizer every 4 hours. IV fluid. Rocephin 2 g IV daily and Zithromax 500 mg IV daily. Follow blood culture urine culture. --Acute kidney injury; due to vasomotor nephropathy Current Visit: Yes Status: Acute Worsening renal function, gentle hydration Monitor renal function, avoid nephrotoxins Renal dosing of medication, check renal ultrasound Consult nephrology - Left lower lobe pneumonia/community-acquired Current Visit: Yes Status: Acute Empiric antibiotics, follow cultures Oxygen titrate O2 sats to more than 90% Supportive care --Sepsis secondary to community-acquired pneumonia Current Visit: Yes Status: Acute Tachycardia, lactic acidosis, hypotension, pneumonia on x-ray Treat the underlying cause, continue antibiotics Check procalcitonin, follow cultures --Lactic acidosis Current Visit: Yes Status: Acute Due to sepsis due to pneumonia, IV fluids Rocephin 2 g IV daily and Zithromax 500 mg IV daily. Follow blood cultures --h/o pancreatic head cancer Current Visit: Yes Status: Acute Patient has outpatient follow-up at [facility] s/p chemo and radiation therapy -DVT prophylaxis advance care planning Current Visit: Yes Status: Acute Heparin 5000 units subcu every 8 hours for DVT prophylaxis. Pepcid 20 mg p.o. twice daily for GI prophylaxis. Patient is a full code Advance care planning: Discussed plan of care with patient family at the bedside Disposition; Discharge when stable and stroke work up negative Daily clinical course: 05/21; patient feels slightly better, cardiology following, requested medical records from [place] Continue current management, cultures negative to date 05/22 Sister requested placement. CM consulted for placement. Review of her records from [place] showed that in October 2020 an echocardiogram showed normal left ventricular systolic function with ejection fraction 55%. At that time, she underwent a cardiac PET ischemia scan that was normal. Elevated troponin troponin levels likely in nonspecific incidental finding in this clinical presentation with severe dehydration following extensive surgery and chemotherapy for gallbladder and pancreatic cancer. follow clinically. 05/23: patient had a syncopal episode while having a BM. code stroke activated. CT head ordered - showed no acute process. 05/24: CT head w/o any acute process, neuro eval pending. pending SNF placement 05/25: pending neuro eval. patient clinically stable. BP stable. tolerating diet. pending placement. 05/26: Pending placement. pending neuro eval. cont to follow clinically. 05/27: Neurology recommended MRI brain study. need SNF on discharge. patient otherwise clinically stable for d/c Subjective Date of service: 05/27/21 Principal diagnosis: Weakness, elevated troponin Interval history: Patient seen and examined. Medical records and medication list reviewed. patient doing better, no acute event o/n pending placement to SNF Objective - Exam Narrative Exam: GENERAL: Elderly -Honduran female lying on bed appeared to be in no discomfort. HEENT: Normocephalic. Atraumatic. No conjunctival congestion or icterus. Patient has moist mucous membranes. NECK: Supple. Trachea midline. CHEST/LUNGS: Clear to auscultated bilaterally, breathing nonlabored. No wheezes crackles or rhonchi. HEART/CARDIOVASCULAR: Regular in rate and rhythm. S1 and S2 positive. ABDOMEN: Abdomen is soft, nontender. Patient has normal bowel sounds. SKIN: There is no rash. Warm and dry. NEURO: No focal motor deficit. Follows command. MUSCULOSKELETAL: No joint effusion or tenderness. EXTRIMITY: No edema, no cyanosis or clubbing. PSYCH: Cooperative. - Constitutional Vitals: Vital Signs - 12hr 05/27/21 05/27/21 05/27/21 07:00 07:20 07:24 Temperature 97.6 F Pulse Rate 68 94 H 77 Pulse Rate [ Anterior Bilateral Throughout] Respiratory Rate Respiratory Rate [Anterior Bilateral Throughout] Blood Pressure 96/55 Blood Pressure [Left] O2 Sat by Pulse 98 Oximetry 05/27/21 05/27/21 05/27/21 07:25 10:00 11:19 Temperature Pulse Rate 98 H Pulse Rate [ Anterior Bilateral Throughout] Respiratory 22 20 Rate Respiratory Rate [Anterior Bilateral Throughout] Blood Pressure 96/55 Blood Pressure 138/77 [Left] O2 Sat by Pulse 96 Oximetry 05/27/21 05/27/21 05/27/21 14:07 15:00 15:52 Temperature 98.1 F Pulse Rate 97 H 104 H Pulse Rate [ 87 Anterior Bilateral Throughout] Respiratory 17 Rate Respiratory 17 Rate [Anterior Bilateral Throughout] Blood Pressure 106/75 Blood Pressure [Left] O2 Sat by Pulse 94 Oximetry - Labs CBC & Chem 7: 05/28/21 05:27 05/28/21 05:27 Labs: Abnormal lab results 05/27/21 Range/Units 06:42 Potassium 3.4 L (3.6-5.0) mmol/L Chloride 111.2 H (98-107) mmol/L Carbon Dioxide 19 L (22-30) mmol/L BUN 33 H (7-17) mg/dL Creatinine 1.8 H (0.6-1.2) mg/dL Glucose 140 H (65-100) mg/dL HEART Score - HEART Score Troponin: Troponin T 0.133 ng/mL (0.00-0.029) H* 05/20/21 11:50
[2021-05-28 06:18] LABS: Basophils % (Auto) 0.6 % (0.0-1.8); Eosinophils # (Auto) 0.1 K/mm3 (0.0-0.4); Eosinophils % (Auto) 1.8 % (0.0-4.3); Hematocrit 42.4 % (30.3-42.9); Hemoglobin 13.7 gm/dl (10.1-14.3); Lymphocytes # (Auto) 0.7 K/mm3 (1.2-5.4); Lymphocytes % (Auto) 15.5 % (13.4-35.0); Mean Corpuscular HGB Conc 32 % (30-34); Mean Corpuscular Volume 98 fl (79-97); Monocytes # (Auto) 0.6 K/mm3 (0.0-0.8); Monocytes % (Auto) 12.7 % (0.0-7.3); Red Blood Count 4.35 M/mm3 (3.65-5.03); Red Cell Distribution Width 17.4 % (13.2-15.2)
[2021-05-28 06:27] LABS: BUN/Creatinine Ratio TNR; Blood Urea Nitrogen TNR mg/dL (7-17); Calcium TNR mg/dL (8.4-10.2)
[2021-05-28 06:28] LABS: Hemolysis Index TNR
[2021-05-28 06:37] LABS: Platelet Count 93 K/mm3 (140-440)
[2021-05-28 09:25] LABS: Albumin 2.3 g/dL (3.9-5); Calcium 10.3 mg/dL (8.4-10.2)
--- NOTE | 2021-05-28 09:32 | Progress Note ---
Assessment and Plan # Presyncopla spell -pt. discribes dizziness on standing with no syncopy -denied hx of seizure, or CVA -Ct brain is unremarkable -cardiac monitoring -need to check for orthostatic changes -Brain MRI preferably with gd -US carotid -review echo #non-ST elevation [place] # New onset AF -Aspirin 325 mg p.o. daily. Lipitor 40 mg p.o. daily. Serial cardiac enzyme. -Cardiology evaluation noted and appreciated -Low-dose beta-blockers, RASHEEDA inhibitors -Medical records from [place] requested # Possible vertigo -she is complining today of vertiginous spells associated with nausea and is positional -orthostatic vital still not done -Brain MRI with gd is pending - # New onset AF -started on Eliquis -echo and US carotid is pending #Acute toxic metabolic encephalopathy -Resolved #Acute kidney injury; due to vasomotor nephropathy -Worsening renal function, gentle hydration # Left lower lobe pneumonia/community-acquired -Empiric antibiotics, follow cultures -Oxygen titrate O2 sats to more than 90% -Supportive care #Sepsis secondary to community-acquired pneumonia -Tachycardia, lactic acidosis, hypotension, pneumonia on x-ray -Treat the underlying cause, continue antibiotics -Check procalcitonin, follow cultures #Lactic acidosis -Due to sepsis due to pneumonia, IV fluids -Rocephin 2 g IV daily and Zithromax 500 mg IV daily. Follow blood cultures #h/o Gallbladder cancer -Patient has gallbladder surgery status post surgery. Patient has recurrence of gallbladder cancer outpatient follow-up with oncology #DVT prophylaxis advance care planning -eliquis currently. -Pepcid 20 mg p.o. twice daily for GI prophylaxis. Patient is a full code PLAN 1- MRI brain 2- check for orthostatic vital 3- US carotid and echo are pending 4- PT therapy 5- cardiac monitoring 6- consider antivert prn will follow Subjective Date of service: 05/28/21 Principal diagnosis: Weakness, elevated troponin Interval history: more alert interactive complaing of nausea and vertigo like event today related to turning head orthostatic is not done MRI scheduled for today echo is pending US carotid is pending Objective - Vital Sign Vital Signs - 12hr 05/27/21 05/27/21 05/27/21 22:00 23:00 23:35 Temperature 98.3 F Pulse Rate 109 H 74 Respiratory 18 18 Rate Blood Pressure 121/70 Blood Pressure [Left] O2 Sat by Pulse 96 100 Oximetry 05/28/21 05/28/21 04:00 08:02 Temperature 98 F 98.0 F Pulse Rate 70 81 Respiratory 18 18 Rate Blood Pressure 109/56 Blood Pressure 109/67 [Left] O2 Sat by Pulse 100 96 Oximetry - General Apperance Constitutional: comfortable - EENT EENT: PERRL, mucous membranes moist - Respiratory Respiratory: lungs clear, rhonchi - Cardiovascular Cardiovascular: other (flutter,irregular) Extremities: no peripheral edema bilat, no clubbing, cyanosis - Gastrointestinal Gastrointestinal: normoactive bowel sounds - Integumentary Integumentary: normal - Neurologic Cranial nerve examination: PERRL, EOMI, intact, other (no nystagmus) Speech examination: intact Detailed motor examination: grossly full strength in - Laboratory Findings CBC and BMP: 05/28/21 05:27 05/28/21 08:50 Abnormal Lab Findings: Abnormal Labs 05/20/21 05/20/21 05/20/21 04:13 04:13 04:13 WBC RBC MCV 100 H MCH RDW 17.2 H Plt Count 100 L Lymph % (Auto) 7.0 L Tucker % (Auto) Lymph # (Auto) 0.5 L Seg Neutrophils % 85.6 H PT 17.5 H INR 1.28 H APTT Potassium Chloride Carbon Dioxide 16 L BUN 48 H Creatinine 1.9 H Glucose 143 H POC Glucose Lactic Acid Calcium 11.3 H Total Bilirubin 1.40 H Direct Bilirubin 0.6 H AST 49 H ALT Alkaline Phosphatase Ammonia Troponin T 0.122 H* Total Protein Albumin 2.9 L HDL Cholesterol 17 L 05/20/21 05/20/21 05/20/21 04:13 04:13 06:08 WBC RBC MCV 98 H MCH 33 H RDW 16.8 H Plt Count 97 L Lymph % (Auto) 4.4 L Tucker % (Auto) 8.3 H Lymph # (Auto) 0.3 L Seg Neutrophils % 87.1 H PT INR APTT Potassium Chloride Carbon Dioxide BUN Creatinine Glucose POC Glucose Lactic Acid 5.90 H* Calcium Total Bilirubin Direct Bilirubin AST ALT Alkaline Phosphatase Ammonia 92.0 H Troponin T Total Protein Albumin HDL Cholesterol 05/20/21 05/20/21 05/20/21 06:08 09:30 09:30 WBC RBC MCV MCH RDW Plt Count Lymph % (Auto) Tucker % (Auto) Lymph # (Auto) Seg Neutrophils % PT INR APTT Potassium Chloride 107.9 H Carbon Dioxide 17 L 19 L BUN 45 H 45 H Creatinine 1.8 H 1.9 H Glucose 140 H 137 H POC Glucose Lactic Acid 4.20 H* Calcium 10.7 H 11.6 H Total Bilirubin Direct Bilirubin AST ALT Alkaline Phosphatase Ammonia Troponin T Total Protein Albumin HDL Cholesterol 05/20/21 05/20/21 05/20/21 10:33 11:03 11:50 WBC RBC MCV MCH RDW Plt Count Lymph % (Auto) Tucker % (Auto) Lymph # (Auto) Seg Neutrophils % PT INR APTT Potassium Chloride Carbon Dioxide BUN Creatinine Glucose POC Glucose 111 H Lactic Acid 4.50 H* Calcium Total Bilirubin Direct Bilirubin AST ALT Alkaline Phosphatase Ammonia Troponin T 0.133 H* Total Protein Albumin HDL Cholesterol 05/21/21 05/21/21 05/21/21 01:42 05:33 05:33 WBC RBC MCV 99 H MCH RDW 16.8 H Plt Count 89 L Lymph % (Auto) Tucker % (Auto) Lymph # (Auto) Seg Neutrophils % PT INR APTT Potassium Chloride 108.2 H Carbon Dioxide 19 L BUN 46 H Creatinine 2.2 H Glucose 132 H POC Glucose Lactic Acid 3.90 H* Calcium 11.4 H Total Bilirubin Direct Bilirubin AST ALT Alkaline Phosphatase Ammonia Troponin T Total Protein Albumin HDL Cholesterol 05/21/21 05/23/21 05/23/21 05:33 12:33 18:52 WBC RBC MCV MCH RDW Plt Count Lymph % (Auto) Tucker % (Auto) Lymph # (Auto) Seg Neutrophils % PT INR APTT Potassium Chloride 114.1 H Carbon Dioxide 18 L BUN 36 H Creatinine 1.5 H Glucose 140 H POC Glucose 145 H Lactic Acid 3.90 H* Calcium Total Bilirubin Direct Bilirubin AST ALT Alkaline Phosphatase Ammonia Troponin T Total Protein Albumin HDL Cholesterol 05/23/21 05/24/21 05/24/21 18:52 17:33 17:33 WBC RBC 3.55 L MCV 99 H MCH 33 H RDW 17.5 H Plt Count 68 L Lymph % (Auto) Tucker % (Auto) Lymph # (Auto) Seg Neutrophils % PT 17.5 H INR 1.28 H APTT 50.9 H Potassium Chloride Carbon Dioxide BUN Creatinine 1.5 H Glucose POC Glucose Lactic Acid Calcium Total Bilirubin Direct Bilirubin AST ALT Alkaline Phosphatase Ammonia Troponin T Total Protein Albumin HDL Cholesterol 05/24/21 05/26/21 05/27/21 17:34 05:38 06:42 WBC 4.3 L RBC 3.53 L MCV 99 H 98 H MCH RDW 17.4 H 17.2 H Plt Count 92 L 84 L Lymph % (Auto) Tucker % (Auto) Lymph # (Auto) Seg Neutrophils % PT INR APTT Potassium 3.4 L Chloride 111.2 H Carbon Dioxide 19 L BUN 33 H Creatinine 1.8 H Glucose 140 H POC Glucose Lactic Acid Calcium Total Bilirubin Direct Bilirubin AST ALT Alkaline Phosphatase Ammonia Troponin T Total Protein Albumin HDL Cholesterol 05/28/21 05/28/21 05:27 08:50 WBC RBC MCV 98 H MCH RDW 17.4 H Plt Count 93 L Lymph % (Auto) Tucker % (Auto) 12.7 H Lymph # (Auto) 0.7 L Seg Neutrophils % PT INR APTT Potassium Chloride 109.9 H Carbon Dioxide 15 L BUN 33 H Creatinine 1.9 H Glucose 108 H POC Glucose Lactic Acid Calcium 10.3 H Total Bilirubin Direct Bilirubin AST 276 H ALT 103 H Alkaline Phosphatase 210 H Ammonia Troponin T Total Protein 5.5 L Albumin 2.3 L HDL Cholesterol
[2021-05-28] MEDS: IPRATROPIUM/ALBUTEROL SULFATE 3 ML AMPUL.NEB IH SCH ×2 (09:52→15:17)
[2021-05-28] MEDS ORDERED: MECLIZINE 12.5 MG TAB PO PRN (10:00)
--- NOTE | 2021-05-28 12:25 | Magnetic Resonance Report ---
NONENHANCED AND CONTRAST ENHANCED MR SCAN OF THE BRAIN: INDICATION / CLINICAL INFORMATION: Seizure disorder, AMS. TECHNIQUE: Multiplanar, multisequence MR images of the brain obtained before and after 10 mL of Clariscan COMPARISON: CT scan of the head from 05/23/2021 FINDINGS: BRAIN / INTRACRANIAL CONTENTS: No acute ischemia, acute hemorrhage, mass effect, midline shift, or hy drocephalus. No chronic infarct or atrophy. Periventricular and deep hemispheric white matter hyperi ntensities due to chronic small vessel disease ([place] 1). No enhancing parenchymal or meningeal les ions in the brain. Mild cerebellar involution. Volume loss in the corpus callosum; confluent hyperintensity along the inferior surface of the corpus callosum in the genu and the body extending into the splenium; nonspecific; no focal lesion along th e inferior surface of corpus callosum usually seen in demyelinating plaques, and white matter lesions are more suggestive of chronic small vessel disease CRANIOCERVICAL JUNCTION: No significant abnormality. VASCULAR FLOW-VOIDS: No significant abnormality. ORBITS: No significant abnormality of visualized orbits. SINUSES / MASTOIDS: No significant abnormality of visualized sinuses and mastoid air cells. ADDITIONAL FINDINGS: In the CT scan, calcification along the cavernous sinuses bilaterally IMPRESSION: 1. No acute/subacute ischemia or hemorrhage Periventricular and deep hemispheric white matter lesions probably due to chronic small vessel diseas e Signer Name: Elsy Kumar MD Signed: 05/28/2021 12:20 PM Workstation Name: [id number]
--- NOTE | 2021-05-28 12:30 | Progress Note ---
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 Incidental finding of a mild elevated troponin level is likely nonspecific finding. Review of her records from [place] showed that in October 2020 an echocardiogram showed normal left ventricular systolic function with ejection fraction 55%. At that time, she also underwent a cardiac PET ischemia scan that was normal. (2) Atrial fibrillation/flutter Current Visit: Yes Status: Acute Plan to address problem: Patient was in sinus rhythm on presentation, but over the course of her hospitalization noted with asymptomatic atrial fibrillation and flutter. She is currently on 2.5 mg Eliquis for anticoagulation. Subjective Date of service: 05/28/21 Principal diagnosis: Weakness, elevated troponin Interval history: Patient is undergoing additional work-up by neurology for symptoms of vertigo. She has remained in a well-controlled atrial fibrillation with ventricular rates 80-100. Objective Vital Signs Temp Pulse Pulse Resp Resp BP BP 05/28/21 08:02 98.0 F 81 18 109/56 05/28/21 04:00 98 F 70 18 109/67 05/27/21 23:35 98.3 F 74 18 121/70 05/27/21 23:00 109 H 05/27/21 22:00 18 05/27/21 21:15 70 18 05/27/21 19:30 98.1 F 94 H 18 100/69 05/27/21 15:52 98.1 F 104 H 17 106/75 05/27/21 15:00 97 H 05/27/21 14:07 87 17 Pulse Ox 05/28/21 08:02 96 05/28/21 04:00 100 05/27/21 23:35 100 05/27/21 23:00 05/27/21 22:00 96 05/27/21 21:15 05/27/21 19:30 94 05/27/21 15:52 94 05/27/21 15:00 05/27/21 14:07 - Physical Examination General: No Apparent Distress, Cachectic HEENT: Positive: PERRL Neck: Positive: neck supple Cardiac: Positive: irregularly irregular Lungs: Positive: Decreased Breath Sounds Neuro: Positive: Grossly Intact Abdomen: Positive: Soft Skin: Positive: Clear Extremities: Absent: edema - Labs and Meds Cardiac Enzymes 05/28/21 Range/Units 08:50 AST 276 H (5-40) units/L CBC 05/28/21 Range/Units 05:27 WBC 4.6 (4.5-11.0) K/mm3 RBC 4.35 (3.65-5.03) M/mm3 Hgb 13.7 (10.1-14.3) gm/dl Hct 42.4 D (30.3-42.9) % Plt Count 93 L (140-440) K/mm3 Lymph # (Auto) 0.7 L (1.2-5.4) K/mm3 [place] # (Auto) 0.6 (0.0-0.8) K/mm3 Eos # (Auto) 0.1 (0.0-0.4) K/mm3 Baso # (Auto) 0.0 (0.0-0.1) K/mm3 Comprehensive Metabolic Panel 05/28/21 05/28/21 Range/Units 05:27 08:50 Sodium TNR 139 Potassium TNR 3.8 Chloride TNR 109.9 H Carbon Dioxide TNR 15 L BUN TNR 33 H Creatinine TNR 1.9 H Glucose TNR 108 H Calcium TNR 10.3 H AST 276 H (5-40) units/L ALT 103 H (7-56) units/L Alkaline Phosphatase 210 H (35-129) units/L Total Protein 5.5 L (6.3-8.2) g/dL Albumin 2.3 L (3.9-5) g/dL
--- NOTE | 2021-05-28 12:44 | Vascular Lab Report ---
DUPLEX DOPPLER ULTRASOUND CAROTID, BILATERAL INDICATION / CLINICAL INFORMATION: dizziness. COMPARISON: None available. FINDINGS: RIGHT CAROTID: Mild atherosclerotic plaque. - PLAQUE ESTIMATE (%): < 50% - CCA velocity: 32 cm/sec. - ICA peak systolic velocity: 70 cm/sec. - ICA/CCA PSV Ratio: Less than 2. Right Vertebral Artery: Antegrade flow. LEFT CAROTID: Mild atherosclerotic plaque. - PLAQUE ESTIMATE (%): < 50% - CCA velocity: 40 cm/sec. - ICA peak systolic velocity: 51 cm/sec. - ICA/CCA PSV Ratio: Less than 2. Left Vertebral Artery: Antegrade flow. IMPRESSION: 1. Right Internal Carotid Artery: Less than 50% diameter stenosis. 2. Left Internal Carotid Artery: Less than 50% diameter stenosis. Velocity criteria are extrapolated from diameter data as defined by the Society of Radiologists in Ul trasound Consensus Conference, Radiology 2003; 229;340-346. NO STENOSIS (NORMAL) - Plaque = none; ICA PSV < 125 cm/sec; ICA/CCA PSV Ratio < 2.0 <50% STENOSIS - Plaque < 50%; ICA PSV < 125 cm/sec; ICA/CCA PSV Ratio < 2.0 50-69% STENOSIS - Plaque > 50%; ICA PSV = 125-230 cm/sec; ICA/CCA PSV Ratio = 2.0-4.0 >70% BUT <100% STENOSIS - Plaque > 50%; ICA PSV > 230 cm/sec; ICA/CCA PSV Ratio > 4.0 NEAR OCCLUSION - Plaque = visible lumen; ICA PSV = high/low/none; ICA/CCA PSV Ratio = variable TOTAL OCCLUSION - Plaque = no lumen; ICA PSV = none; ICA/CCA PSV Ratio = N/A Scribed by: Lisset Alcantar RDMS, RVT, RMSKS Scribed: 05/28/2021 11:31 AM I have reviewed the images, agree with this report, and edited this report as needed. Signer Name: Malcolm Curran MD Signed: 05/28/2021 12:40 PM Workstation Name: [id number]
--- NOTE | 2021-05-28 13:49 | Discharge Summary ---
Providers - Providers Date of Admission: 05/20/21 05:38 Date of discharge: 05/28/21 Attending physician: STEFANIA MERRILL 05/20/21 Consult to Cardiac Rehabilitation [CONS] Routine Reason For Exam: Phase I 05/20/21 05:49 Consult to Cardiology [CONS] Routine Consulting Provider: VI CURRY Reason For Exam: nstemi 05/23/21 12:45 Telemedicine [[facility] Consult Order] [CONS] ONCE Comment: Consulting Provider: Reason For Exam: syncope 05/23/21 13:00 [facility] Consult Order [CONS] ONCE Comment: Consulting Provider: Reason For Exam: syncope 05/24/21 09:11 Physical Therapy Evaluation and Treat [CONS] Routine Comment: SNF PLACEMENT Reason For Exam: PT Eval and Treat 05/24/21 09:13 Occupational Therapy Evaluate and Treat [CONS] Routine Comment: SNF PLACEMENT Reason For Exam: OT for Eval and Treat 05/27/21 13:48 Consult to Physician [CONS] Routine Comment: Consulting Provider: DANTE REYES Physician Instructions: Reason For Exam: syncope Primary care physician: ZULEYMA CUELLAR Hospitalization Reason for admission: Syncopal episode/autonomic dysfunction/severe encephalopathy Condition: Stable Pertinent studies: Chest x-ray CT head without contrast MRI brain Carotid Doppler Echocardiogram Hospital course: Weakness, low blood pressure History of present illness: 80 years old female with 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 Patient is alert but confused. She denied any chest pain or shortness of breath. She also denied any abdominal pain, nausea or vomiting. She stated that she was going to the bathroom and she just felt weak all over. No fever or chills. In the emergency room patient is found to have lactic acid of 5.90 , creatinine of 1.9 and a BUN of 48. Chest x-ray showed left lower lobe infiltrate. Troponin elevated also 0.122. Patient was admitted to the hospital. Evaluated by neurology. Had extensive negative neuro work-up as mentioned below Patient's renal function closely monitored, patient was also evaluated Cardiology, neurology and medications were optimized patient symptoms slowly but gradually improved today patient is comfortable very minimal weakness vital signs stable physical examination no new changes patient will be receiving physical therapy occupational therapy and rehabilitation at subacute rehab/SNF. Cleared by all the consultants for discharge and follow-up per schedule CM assisting with discharge planning Discharge diagnosis: --Syncopal episode /autonomic dysfunction likely from dehydration. BP recorded low during the event, resolved with iv fluid CT head w/o any acute process, activated stroke protocol, consulted neuro --Non-ST elevation IA Current Visit: Yes Status: Acute Aspirin 325 mg p.o. daily. Lipitor 40 mg p.o. daily. Serial cardiac enzyme. Cardiology evaluation noted and appreciated Low-dose beta-blockers, RASHEEDA inhibitors Medical records from [place] requested --Acute toxic metabolic encephalopathy Current Visit: Yes Status: Acute Metabolic encephalopathy secondary to sepsis pneumonia. Oxygen per nasal cannula 3 L/min. DuoNeb by nebulizer every 4 hours. IV fluid. Rocephin 2 g IV daily and Zithromax 500 mg IV daily. Follow blood culture urine culture. --Acute kidney injury; due to vasomotor nephropathy Current Visit: Yes Status: Acute Worsening renal function, gentle hydration Monitor renal function, avoid nephrotoxins Renal dosing of medication, check renal ultrasound Consult nephrology - Left lower lobe pneumonia/community-acquired Current Visit: Yes Status: Acute Empiric antibiotics, follow cultures Oxygen titrate O2 sats to more than 90% Supportive care --Sepsis secondary to community-acquired pneumonia Current Visit: Yes Status: Acute Tachycardia, lactic acidosis, hypotension, pneumonia on x-ray Treat the underlying cause, continue antibiotics Check procalcitonin, follow cultures --Lactic acidosis Current Visit: Yes Status: Acute Due to sepsis due to pneumonia, IV fluids Rocephin 2 g IV daily and Zithromax 500 mg IV daily. Follow blood cultures --h/o pancreatic head cancer Current Visit: Yes Status: Acute Patient has outpatient follow-up at [facility] s/p chemo and radiation therapy --obesity; BMI 32.0 Advised diet modification exercise as tolerated and weight reduction When medically stable Medically stable for discharge DC planning per case management, discharge to [facility] pending COVID-19 test Disposition: [facility] Final Discharge Diagnosis (Prints w/discharge instructions): Syncopal episode/autonomic dysfunction. Non-ST elevation IA. Acute toxic metabolic encephalopathy. Acute kidney injury/vasomotor nephropathy. Lower lobe pneumonia community-acquired. Sepsis secondary to community-acquired pneumonia. Lactic acidosis. History of pancreatic head cancer. Obesity BMI 32.0 Time spent for discharge: 40 min Core Measure Documentation - Palliative Care Palliative Care/ Comfort Measures: Not Applicable - Core Measures Any of the following diagnoses?: none Exam - Constitutional Vitals: Temp Pulse Resp BP Pulse Ox 97.0 F L 69 20 86/62 93 05/28/21 12:45 05/28/21 12:45 05/28/21 12:45 05/28/21 12:45 05/28/21 12:45 General appearance: Present: no acute distress, well-nourished - EENT Eyes: Present: PERRL, EOM intact - Neck Neck: Present: supple, normal ROM - Respiratory Respiratory effort: normal Respiratory: bilateral: diminished, negative: rales, rhonchi, wheezing - Cardiovascular Rhythm: regular Heart Sounds: Present: S1 & S2 - Extremities Extremities: no ischemia, No edema - Abdominal General gastrointestinal: Present: soft, non-tender, non-distended - Integumentary Integumentary: Present: clear, warm - Musculoskeletal Musculoskeletal: strength equal bilaterally, generalized weakness - Psychiatric Psychiatric: appropriate mood/affect, cooperative - Neurologic Neurologic: moves all extremities Plan Activity: advance as tolerated, fall precautions Diet: other (Cardiac diet) Special Instructions: physical therapy, occupational therapy Additional Instructions: Fall precautions. Aspiration precautions. Physical therapy/Occupational Therapy. If you have worsening symptoms contact MD or go to the nearest emergency room as needed Follow up with: ZULEYMA CUELLAR JR, MD [Primary Care Provider] - 3-5 Days FARNAZ PACHECO MD [Staff Physician] - 7 Days Prescriptions: Meclizine [Antivert] 12.5 mg PO Q12H PRN #30 tablet PRN Reason: Vertigo Aspirin [Aspirin BABY CHEW TAB] 81 mg PO QDAY #30 tab.chew Apixaban [Eliquis] 2.5 mg PO Q12HR #60 tablet AtorvaSTATin [Lipitor] 40 mg PO QHS #30 tablet Famotidine [Pepcid] 20 mg PO DAILY #30 tablet
[2021-05-28] MEDS: APIXABAN 2.5 MG TAB PO SCH (16:50)
[2021-05-28] MEDS: FAMOTIDINE 20 MG TAB PO SCH (16:50)
[2021-05-28 17:29] VITALS: BP 94/58
== END 2021-05-28 17:39 | DRG 871 ==
LOC: ED 03:41 → 4A 05:38
PROVIDERS: ADMIT Hospitalist; ATTEND Internal Medicine
DX: A41.9 Sepsis, unspecified organism (principal); J18.9 Pneumonia, unspecified organism; I21.4 Non-ST elevation (NSTEMI) myocardial infarction; N17.0 Acute kidney failure with tubular necrosis; G92.8 Other toxic encephalopathy; C25.9 Malignant neoplasm of pancreas, unspecified; I48.92 Unspecified atrial flutter; Z20.822 Contact with and (suspected) exposure to COVID-19; I48.0 Paroxysmal atrial fibrillation; G90.8 Other disorders of autonomic nervous system; E66.9 Obesity, unspecified; Z68.32 Body mass index [BMI] 32.0-32.9, adult; Z85.89 Personal history of malignant neoplasm of other organs and systems
CPT/HCPCS: 36415; 70450; 70553; 71045; 80048; 80053; 80061; 80076; 81001; 82140; 82550; 82565; 82962; 84484; 85025; 85027; 85610; 85730; 87040; 93005; 93010; 93306; 93880; 94640; 94760; G0378; J3490; Q0162; A9575; C8929; J0456; J0461; J0696; J1644; J2543; J7030; J7040; U0003